=== PATIENT | female | born 1960 | race Caucasian/White ===

== ENCOUNTER 2025-06-05 18:35 | Inpatient (IN) | payer SELFPAY ==
--- NOTE | ~2025-06-05 | CT_ITS ---
CLINICAL HISTORY: diffuse abd pain, nausea - pt states she has an allergy to IV contrast. CT abdomen and pelvis without contrast Comparison: None provided Findings: LIMITED CHEST: See separate CT chest. LIVER: No focal liver lesion. BILIARY: Cholecystectomy. PANCREAS: No mass or ductal dilatation. SPLEEN: No splenomegaly. KIDNEYS: No hydronephrosis or radiopaque stone. ADRENALS: No nodule. VASCULAR: No aneurysm. RETROPERITONEUM: No lymphadenopathy or mass. BOWEL/MESENTERY: No evidence of obstruction. No free fluid or air. Colonic diverticulosis. There is long segment of colonic wall thickening and adjacent inflammatory stranding involving the transverse, descending, and sigmoid colon. ABDOMINAL WALL: No mass or significant abnormality. URINARY BLADDER: No focal wall thickening. PELVIC NODES: No pelvic lymphadenopathy. PELVIC ORGANS: Normal for age. BONES: No acute fracture. OTHER: Negative. IMPRESSION: Inflammatory stranding and wall thickening of the transverse, descending, and sigmoid colon suggesting infectious or inflammatory colitis. This document has been electronically signed by: Stephanie Lopez MD on 06/06/2025 00:59:15
--- NOTE | ~2025-06-05 | MR_ITS ---
CLINICAL HISTORY: encephalopathy rule out stroke MR of the brain without contrast Comparison: CT/SR - CT HEAD/BRAIN WO IV CON - 06/05/25 23:34 EST Findings: No acute infarction, hemorrhage, mass-effect or herniation. No hydrocephalus. Increased signal intensity is seen in the deep and periventricular white matter on the T2/FLAIR sequences, which most likely represents the sequela of mild chronic small vessel ischemic disease. No extra-axial fluid collection or mass. Unremarkable sella. Intact flow voids. Normal orbits. Large retention cyst/polyp in the left maxillary sinus. Fluid in the left sphenoid sinus, also present on prior study. Left taisha bullosa which also contains fluid, unchanged. Otherwise predominantly clear paranasal sinuses and mastoid air cells. Unremarkable osseous structures. Impression: No acute infarction or other findings to explain the patient's presentation. This document has been electronically signed by: Shayla Rojas MD on 06/06/2025 13:31:11
--- NOTE | ~2025-06-05 | CT_ITS ---
CLINICAL HISTORY: abd pain Exam: CT Abdomen and Pelvis With IV Contrast Comparison: None. Findings: The liver is enlarged. The gallbladder is surgically absent. The spleen is normal in size No pancreatic ductal dilatation No hydronephrosis. No urinary tract calculi or obstruction. Normal bowel caliber. There is diffuse thickening of midsigmoid colon wall where there are numerous diverticula. There is perisigmoid inflammatory fat stranding in the region of the sigmoid mesentery, example: Image 67/123, series 6. No secondary signs of acute appendicitis No free fluid/free air No vascular abnormalities. No adenopathy Bladder outline is smooth. Uterus is normal in size. No suspicious skeletal lesions. There is anterior and left abdominal wall superficial fascia edema consistent with cellulitis. Impression : 1. Anterior left abdominal wall superficial fascia cellulitis. 2. Diverticulitis versus colitis. The diagnosis of colitis is favor due to long segment involvement of both descending and sigmoid colon. No abscess. No perforation. This document has been electronically signed by: Henry Cochran MD on 06/09/2025 18:40:27
--- NOTE | ~2025-06-05 | CT_ITS ---
CLINICAL HISTORY: dizzy, fell hit the left posterior chest CT chest without contrast Comparison: None provided Findings: NECK BASE: Limited views of the neck are unremarkable. LUNGS/PLEURA: No focal consolidation. PULM VASCULAR: Poorly evaluated without IV contrast. MEDIASTINUM: No masses or lymphadenopathy. CARDIAC: No pericardial effusion. No cardiomegaly. Coronary artery calcifications. AORTA: No aneurysm. CHEST WALL: No masses or axillary lymphadenopathy. LIMITED ABDOMEN: See separate CT abdomen pelvis. BONES: No acute fracture. IMPRESSION: 1. No acute abnormality in the chest. This document has been electronically signed by: Stephanie Lopez MD on 06/06/2025 00:57:13
--- NOTE | ~2025-06-05 | CT_ITS ---
CLINICAL HISTORY: fall head injury vomiting CT head without contrast Comparison: None provided Findings: BRAIN: No acute infarct, hemorrhage, or mass effect. Scattered periventricular/deep white matter hypodensities, nonspecific, however may represent chronic microvascular ischemic disease. CSF SPACES: No hydrocephalus or effacement of basal cisterns. SKULL: No calvarial fracture. SINUSES: Left maxillary sinus retention cyst. ORBITS: Limited views are unremarkable. OTHER: Negative. IMPRESSION: 1. No acute intracranial findings. This document has been electronically signed by: Stephanie Lopez MD on 06/06/2025 00:36:49
--- NOTE | ~2025-06-05 | CT_ITS ---
CLINICAL HISTORY: fall neck pain CT cervical spine without contrast Comparison: None provided Findings: Straightening of the normal cervical lordosis. Multilevel degenerative endplate changes of the cervical spine. No high-grade spinal stenosis. No acute fractures or dislocations. No acute findings on limited view of the intracranial contents. Soft tissues of the neck are normal. Lung apices are clear. IMPRESSION: No acute findings. This document has been electronically signed by: Stephanie Lopez MD on 06/06/2025 00:37:02
[2025-06-05 18:43] VITALS: BP 160/92; PULSE 95; O2SAT 98
[2025-06-05 18:44] VITALS: BP 203/83; PULSE 79; RESP 18; TEMP 36.3; O2SAT 95; BMI 42.7
--- NOTE | 2025-06-05 19:23 | PC.NURSE ---
Pt a&ox4, no signs of distress. Pt reports hx of DM, POC is 372. Pts family at bedside Plan of care ongoing.
[2025-06-05 19:26] LABS: Glucose, Whole Blood 372 mg/dL (60-115)
--- NOTE | 2025-06-05 19:51 | ECG_ITS ---
Test Reason : DIZZINESS Blood Pressure : */* mmHG Vent. Rate : 85 BPM Atrial Rate : 85 BPM P-R Int : 174 ms QRS Dur : 88 ms QT Int : 392 ms P-R-T Axes : 33 59 114 degrees QTcB Int : 466 ms Normal sinus rhythm Septal infarct , age undetermined Abnormal ECG No previous ECGs available Referred By: Helena Sanchez Electronically Signed By: Joo Parker
--- NOTE | 2025-06-05 19:55 | ED.GENADULT ---
HPI - General Adult General Chief complaint: Fall Stated complaint: Fall yesterday, flank pain Time Seen by Provider: 06/05/25 19:09 History of Present Illness HPI narrative: Patient is a 64-year-old female history of diabetes. Patient felt dizzy fell yesterday hit her head. There was nausea. Now has abdominal pain. Has back pain. Has flank pain. Not on blood thinners except for aspirin. No fever no chill No focal weakness. Pain to the left posterior inferior rib area. Worse with deep breath. Worse with movement. Positive diffuse abdominal pain. Associated with nausea vomiting. Vomiting mostly consistent with bile. positive diarrhea brown. Not on any recent antibiotics. Did travel from [place]. There is no coughing or congestion or upper respiratory symptoms. There is no diaphoresis. Patient is from home. Related Data Previous Rx's ?Medication ?Instructions ?Recorded ondansetron 4 mg disintegrating 4 mg PO TID PRN nausea and 06/06/25 tablet vomiting 5 days #10 tabs Allergies Allergy/AdvReac Type Severity Reaction Status Date / Time No Known Allergies (No Known Allergy Verified 06/05/25 18:50 Allergies*) Review of Systems Review of Systems: Positive dizziness positive fall positive head injury positive chest pain positive abdominal pain Yes all other systems are reviewed and are negative [facility] Past Medical History Attestation statement: The following information was validated with the patient. Social History Social History Smoked in Last 30 Days: No Advance Directives: No Advance Directives Information Provided: No Physical Exam ED Exam Exam: Appearance: Alert. Oriented X3. No acute distress. Eyes: Pupils equal, round and reactive to light. ENT: Pharynx normal. Neck: Normal inspection. Neck supple. No lymph nodes noted. No crepitus CVS: Normal heart rate and rhythm. Pulses normal. Normal S1 and S2 Respiratory: No respiratory distress. Breath sounds normal. No Wheezing. No rales Abdomen: Soft and nontender. No rigidity. No distention. good BS x4 Skin: Skin warm and dry. Normal skin color. Normal skin turgor. Extremities: No lower extremity edema. Neurovascular intact to all extremities. No Lacerations. No Rash Neuro: Oriented X 3. No motor deficit. No sensory deficit. Moving all extermities. No slurred speech Vital Signs: Vital Signs - 24 hr 12/20/25 18:44 06/05/25 20:00 06/05/25 21:25 Temperature 97.4 F Pulse Rate 79 82 Respiratory Rate 18 16 18 Blood Pressure 203/83 H 109/90 H Pulse Oximetry 95 98 Oxygen Delivery Method Room Air Room Air 06/05/25 23:12 06/06/25 01:16 Temperature 98.0 F Pulse Rate 82 85 Respiratory Rate 16 14 Blood Pressure 154/60 H Pulse Oximetry 94 Oxygen Delivery Method Room Air BMI result Body Mass Index 42.7 Medications Administered Discontinued Medications Generic Name Dose Route Start Last Admin Trade Name Freq PRN Reason Stop Dose Admin Hydromorphone HCl 0.5 mg 06/05/25 21:18 06/05/25 21:25 Hydromorphone Hcl 0.5 Mg/0.5 Ml Syringe IVPUSH 06/05/25 21:19 0.5 mg ONCE ONE Administration Protocol Sodium Chloride 1,000 mls @ 999 mls/hr 06/05/25 20:00 06/05/25 20:13 Ns IV 06/05/25 21:00 999 mls/hr .Q1H1M SEVEN Administration Sodium Chloride 500 mls @ 999 mls/hr 06/05/25 20:00 06/05/25 20:18 Ns IV 06/05/25 20:30 999 mls/hr .Q31M SEVEN Administration Sodium Chloride 1,000 mls @ 999 mls/hr 06/05/25 22:00 06/05/25 23:00 Ns IV 06/05/25 23:00 999 mls/hr .Q1H1M SEVEN Administration Insulin Human Regular 5 unit 06/05/25 20:42 06/05/25 21:27 Insulin Regular, Human 100 Unit/Ml 10 Ml Vial IVPUSH 06/05/25 20:43 5 unit ONCE ONE Administration Ondansetron HCl 4 mg 06/05/25 21:18 06/05/25 21:23 Ondansetron Hcl 4 Mg/2 Ml Vial IVPUSH 06/05/25 21:19 4 mg ONCE ONE Administration Medical Decision Making Medical Decision Making MDM Narrative: Positive nausea vomiting diarrhea. Diarrhea was brown in color. [place] dizzy and fell hit her head. CT scan of the head was grossly negative for bleed. CT scan of the abdomen pelvis positive for colitis. No obstruction no abscess no perforation. CT C-spine showed no acute fracture no malalignment. Patient well-appearing given 2 L of IV fluids tolerated p.o. some Toradol for pain. Patient's BUN and creatinine consistent with dehydration. 2 L of fluid was given. She wants to go home. A stiff script for Zofran was given. patient's sugar is still 460 will give additional insulin. There is no evidence for DKA will wait for the fluids to go in and reassess. Case signed out at 2am Differential Diagnosis Differential Diagnoses: The differential diagnosis associated with the presentation includes Lab Data MDM Lab Attestation statement: I reviewed the patient's lab results. 06/05/25 20:12 06/05/25 20:12 Labs: Lab Results 06/05/25 06/05/25 Range/Units 19:19 20:12 WBC 15.7 H (4.8-10.8) X10*3/uL RBC 4.79 (4.20-5.50) X10*6/uL Hgb 14.1 (12.0-16.0) g/dl Hct 41.7 (37.0-47.0) % MCV 87.1 (80.0-98.0) fL MCH 29.4 (27.0-33.0) pg MCHC 33.8 (31.0-35.0) g/dl RDW 11.9 (11.0-16.0) % Plt Count 345 (160-400) X10*3/uL MPV 10.3 (9.4-12.3) fL Immature Gran % (Auto) 0.7 H (0.0-0.4) % Neut % (Auto) 86.7 H (45-73) % Lymph % (Auto) 8.0 L (20-40) % [place] % (Auto) 3.7 (2-11) % Eos % (Auto) 0.6 (0-4) % Baso % (Auto) 0.3 (0-2) % Lymph # (Auto) 1.3 (1.2-4.9) X10*3/uL [place] # (Auto) 0.6 (0.1-1.2) X10*3/uL Eos # (Auto) 0.1 (0.0-0.4) X10*3/uL Baso # (Auto) 0.1 (0.0-0.2) X10*3/uL Abs Immat Gran (auto) 0.11 H (0.00-0.03) X10*3/uL Absolute Neuts (auto) 13.6 H (2.0-8.3) x10*3/uL Absolute Nucleated RBC 0.000 (0.0-0.012) X10*3/uL Nucleated RBC % (auto) 0.0 (0.0-0.2) /100WBC Sodium 133 L (135-145) mmol/L Potassium 4.9 (3.3-5.1) mmol/L Chloride 98 (96-108) mmol/L Carbon Dioxide 22 (22-29) mmol/L Anion Gap 18 (12-20) BUN 33 H (9-16) mg/dL Creatinine 0.88 (0.5-1.4) mg/dL Estim Creat Clear Calc 83.4 Estimated GFR > 60 POC Glucose 372 H* (60-115) mg/dL Random Glucose 423 H* (60-115) mg/dL Calcium 10.4 H (8.4-10.2) mg/dL Total Bilirubin 0.4 (0.0-1.0) mg/dL Direct Bilirubin 0.1 (0.0-0.5) mg/dL AST 23 (5-31) U/L ALT 14 (0-31) U/L Alkaline Phosphatase 115 (39-117) U/L Total Creatine Kinase 71 (26-140) U/L Troponin I High Sens 4.2 (<3.5-17.0) ng/L Total Protein 8.2 H (6.5-8.0) g/dL Albumin 4.5 (3.5-5.0) g/dL Lipase 35 (8-78) U/L Influenza Type A (PCR) NEGATIVE (Negative) Influenza Type B (PCR) NEGATIVE (Negative) RSV RNA Qual (PCR) NEGATIVE (Negative) SARS-CoV-2 RNA (RT-PCR) NEGATIVE (Negative) Independent Interpretation I performed an independent interpretation of an: CT Scan ( CT head negative for bleed) Radiology Impression Discussion of test interpretation with radiology: I have reviewed the radiologist's reading. Discharge Plan Discharge Clinical Impression: Head injury, Dehydration, Diarrhea Patient Disposition: Still a Patient Instructions: Dehydration (DC), Head Injury (DC), Acute Nausea and Vomiting (ED), Acute Diarrhea (ED), Diabetic Hyperglycemia (ED) Prescriptions: New ondansetron 4 mg tablet,disintegrating 4 mg PO TID PRN (Reason: nausea and vomiting) 5 Days Qty: 10 0RF Referrals: [facility] [Physician, Medical] - 06/08/25 Print Language: Faroese
[2025-06-05 20:00] VITALS: BP 109/90; PULSE 82; RESP 16; O2SAT 98
[2025-06-05 20:17] LABS: MANUAL DIFF FLAG NO
[2025-06-05 20:25] LABS: Hematocrit 41.7 % (37.0-47.0); Hemoglobin 14.1 g/dl (12.0-16.0); Imm Gran Abs Auto 0.11 X10*3/uL (0.00-0.03); Imm Gran Pct Auto 0.7 % (0.0-0.4); Lymphocytes Absolute Auto 1.3 X10*3/uL (1.2-4.9); Mean Corpuscular HGB Conc 33.8 g/dl (31.0-35.0); Mean Corpuscular Hemoglobin 29.4 pg (27.0-33.0); Mean Corpuscular Volume 87.1 fL (80.0-98.0); NRBC Abs Auto 0.000 X10*3/uL (0.0-0.012); NRBC Pct Auto 0.0 /100WBC (0.0-0.2); Platelet Count 345 X10*3/uL (160-400); Red Blood Count 4.79 X10*6/uL (4.20-5.50); White Blood Count 15.7 X10*3/uL (4.8-10.8)
[2025-06-05 20:41] LABS: Alanine Aminotransferase 14 U/L (0-31); Albumin Level 4.5 g/dL (3.5-5.0); Alkaline Phosphatase 115 U/L (39-117); Anion Gap 18 (12-20); Aspartate Amino Transferase 23 U/L (5-31); Blood Urea Nitrogen 33 mg/dL (9-16); Calcium 10.4 mg/dL (8.4-10.2); Carbon Dioxide 22 mmol/L (22-29); Chloride 98 mmol/L (96-108); Creatinine Clr Calc Pharmacy 83.4; Estimated Glomerular Filt Rate > 60; Lipase 35 U/L (8-78); Potassium 4.9 mmol/L (3.3-5.1); Sodium 133 mmol/L (135-145); Total Protein 8.2 g/dL (6.5-8.0)
[2025-06-05 20:44] LABS: Troponin-I High Sensitivity 4.2 ng/L (<3.5-17.0)
[2025-06-05 21:03] LABS: Resp Syncy Virus RNA Qual PCR NEGATIVE (Negative); SARS COV2 PCR INHOUSE NEGATIVE (Negative)
[2025-06-05 21:25] VITALS: RESP 18
--- NOTE | 2025-06-05 21:32 | PC.NURSE ---
Pt medicated per [facility] Plan of care ongoing.
--- NOTE | 2025-06-05 21:39 | PC.NURSE ---
Pt requested and assisted to bedside commode Plan of care ongoing.
--- OUTSIDE RECORDS SUMMARY | 2025-06-05 22:10 | XMS_ITS | Clinical Summary ---
Author Organization [facility] Address [address] [place] [address] Phone Care Team Providers Care Product Delivery Specialist Name Role Phone Tad Roberts MD Primary Care Provider [phone] Kiana Lobato MD, Vijay Flores Unavailable [phone] Allergies Active Allergy Reactions Criticality Noted Date Comments [place] Rash Low 03/29/2017 Medications aspirin 81 MG chewable tablet Chew then swallow 81 mg daily. Active insulin NPH-insulin regular (NOVOLIN) 100 unit/mL (70-30) injection Inject under the skin 2 (two) times a day. Active losartan (COZAAR) 100 MG tablet Take 100 mg by mouth daily. Active ezetimibe-simva statin (VYTORIN) 10-20 mg per tablet Take 1 tablet by mouth nightly. Active albuterol (PROVENTIL HFA;VENTOLIN HFA) 90 mcg/actuation inhaler Inhale 2 puffs every 6 (six) hours as needed for wheezing. Active simvastatin (ZOCOR) 20 MG tablet No sig as of abstraction date. 4 Active cyclobenzaprine (FLEXERIL) 10 MG tablet Take by mouth. 5 Active traMADol (ULTRAM) 50 mg tablet 0 5 Active UNIFINE PENTIPS 31 gauge x 10/30 Ndle 11 5 Active oxyCODONE-aceta minophen (PERCOCET) 5-325 mg per tablet 0 5 Active nystatin (MYCOSTATIN) ointment 5 5 Active VICTOZA 2-[place] 0.6 mg/0.1 mL (18 mg/3 mL) PnIj 5 5 Active lidocaine (XYLOCAINE) 5 % ointment 5 5 Active ibuprofen (ADVIL,MOTRIN) 600 MG tablet 2 5 Active gabapentin (NEURONTIN) 300 MG capsule 9 5 Active amLODIPine (NORVASC) 5 mg tablet 6 5 Active omeprazole 20 mg TbECIndications :Diarrheal stools Take 20 mg by mouth daily. 30 each 3 5 Active atorvastatin (LIPITOR) 40 MG tablet 11 5 Active clarithromycin (BIAXIN) 500 MG tablet 0 5 Active metroNIDAZOLE (FLAGYL) 500 MG tablet 0 5 Active omeprazole (PRILOSEC) 20 MG capsule 3 5 Active simvastatin (ZOCOR) 40 MG tablet 5 5 Active zolpidem (AMBIEN) 5 MG tablet Take 1 tablet (5 mg total) by mouth nightly as needed for sleep. 15 tablet 0 6 Active ALPRAZolam (XANAX) 0.5 MG tabletIndicatio ns:Adjustment reaction with anxiety Please take 1/2 tablet (0.25mg) in the morning and 1 tablet (0.5mg) in the evening 45 tablet 0 6 Active mirtazapine (REMERON) 7.5 MG tabletIndicatio ns:Insomnia due to mental disorder Take 1 tablet (7.5 mg total) by mouth nightly. 30 tablet 0 6 Active acetaminophen 325 mg cap Take by mouth. 7 Active miscellaneous medical supply Misc large size, gradient IV 6 Active hydroCHLOROthia zide (HYDRODIURIL) 25 MG tablet Take by mouth. 7 Active ipratropium (ATROVENT) 0.03 % nasal spray into each nostril. 7 Active Active Problems Problem Noted Date Diagnosed Date Diarrhea 04/14/2018 Overview (04/14/2018): Added automatically from request for surgery [id number] Depressive disorder 12/27/2015 Overview (04/29/2018): 55 y/o [place] speaking female, unspecified depressive disorder (no previous suicide attempts, adjustment d/o with anxiety and insomnia presents for initial intake with this provider. Previously on Alprazolam and benzos overall for years, she is finding it difficult to think about weaning off. it can effect memory and cognition. Previously on Fluoxetine for depression and Mirtazapine for help with insomnia, likely due to a combination of depression and chronic pain. Assessment & Plan (01/24/2016 2:46 PM EDT): Pt reports symptom improvement with Fluoxetine. She says it has given her more energy and she feels her mood is improving. Still has some anxiety/panic symptoms related to her upcoming endoscopy. Will continue to uptitrate Fluoxetine. No appreciable side effects - inc Fluoxetine to 40mg daily Assessment & Plan (12/27/2015 3:16 PM EDT): Patient reports depressed mood, poor sleep, low energy, change in appetite in the setting of recent loss of her mother and oldest son in the last 6 months. - start Fluoxetine 20mg--patient reports forgetting her medication frequently so this is preferred due to longer half life - alprazolam 0.5mg BID prn. Patient used to take this medication with previous provider and found it helpful. Denies current substance abuse. Does not appear that patient has a history of abusing this medication. Informed of side effects. Diarrheal stools 03/23/2015 Overview (03/23/2015): 54 yr old [place] speaking F with h/o DMII and s/p cholecystectomy referred by PCP for chronic diarrhea. Assessment & Plan (03/23/2015 2:19 PM EDT): 54 yr old [place] speaking F with h/o DMII and s/p cholecystectomy referred by PCP for chronic diarrhea.The patient was seen in [facility] about one year ago on 04/12/14 for diarrhea and abdominal pain. The patient's main complaint today is epigastric pain and nausea. She had presented to [facility] in Jan 2015 and per the pt an abd/pelvic CT showed 3 stomach masses. It was recommended that the pt have an EGD for further evaluation. We will request copy of outside CT results for our review. The patient continues to have 1-2 loose BMs per day, which is most likely r/t functional bowel disorder such as IBS or may be related to s/p cholecystectomy. Recent stool studies at PCPs office were negative. Abd[place] [facility] [place] showed diffuse colonic diverticula w/o evidence of acute diverticulitis. Colonoscopy on 04/05/14 showed perianal erythematous rash found on perianal exam, two adenomatous polyps in the cecum and descending colon, and diverticulosis with no e/o microscopic colitis or diverticulitis. Recommend repeat surveillance screening colonoscopy in 5 yrs for adenomas. It is unclear what the stomach masses shown on recent outside abd/pelvic CT represent, but pt's symptoms seem most c/w GERD or gastritis. We recommend an EGD for further evaluation. Start taking once daily PPI. We discussed GERD lifestyle modifications, including avoiding NSAIDs (pt has been taking Motrin for epigastric pain which may be worsening her sx), alcohol, caffeine, mints, soda, spicy foods, and chocolate. Recommended that she eat small frequent meals instead of three large meals per day. Avoid eating at least two hours before bedtime. Elevate the head of the bed by about 6-12 inches. Maintain ideal body weight. Patient understands risks, benefits and alternatives and agrees to proceed with the following plan: Plan - take omeprazole 20mg every day, taken on an empty stomach 30 min before a meal - GERD lifestyle modifications (gave pt written handout in [place]) - schedule EGD - RTC in 3 months for follow up or sooner prn Adjustment reaction with anxiety 01/26/2015 Assessment & Plan (01/24/2016 2:44 PM EDT): Continues to have some anxiety related to an upcoming endoscopy. She says that she has been having a lot of pain in her abdominal area and the endoscopy will determine whether or not surgery is necessary--she mentions something about her colon and says that she may need a temporary colostomy bag. She seems nervous about the endoscopy but does not feel overly concerned about the surgery, but relieved if it will make her feel better. Continues to also have a lot of frustration with her chronic pain and LE edema. 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 Discussed her current medication regimen. We talked about increasing her Prozac, and continuing to uptitrate it to a therapeutic dose for depression/anxiety. She feels this medication has been helpful so far, and is amenable to the increase. Also talked about Alprazolam and our plan to slowly wean off it. She seemed very hesitant, as this has been the only medication which she perceives has worked for her in the past. Provided some psychoeducation. - reduced Alprazolam to 0.25mg qam and 0.5mg qpm - plan to continue to slowly titrate down, will proposed eliminating morning dose at next visit - patient advised extreme caution against mixing benzos with opioids. If she is to receive opioid pain medication due to any upcoming procedure, she was made aware of the risks of combining these two medications. Assessment & Plan (12/27/2015 3:17 PM EDT): Anxiety/panic worsening after of her son 3 months ago - renewed previous prescription for Alprazolam 0.5mg BID prn - patient will return in 1 month, patient will be monitored through [facility] Assessment & Plan (01/26/2015 12:29 PM EDT): Start Xanax 0.5mg BID prn for anxiety RTC in 2 months Insomnia due to mental condition 01/26/2015 Overview (03/18/2018): ICD10 Fall 2017 Code Replacement Assessment & Plan (01/24/2016 2:45 PM EDT): Persistent insomina due to ongoing depressive symptoms, and overall stress related to chronic pain and upcoming procedure. - given Mirtazapine 7.5mg at bedtime prn for sleep Assessment & Plan (12/27/2015 3:18 PM EDT): Insomnia related to depression and increased stress over recent events. Will give pt limited (15 pills) supply of Ambien this month. Informed patient that this is not a detention medication and not to use in for more than a week consecutively. Pt expressed understanding - Ambien 5mg at bedtime prn, 15 pills Assessment & Plan (01/26/2015 12:29 PM EDT): Start Trazodone 50-100mg qhs RTC in 2 months Pain of knee and lower leg 12/08/2013 Diverticulitis of colon 12/04/2013 Hyperlipidemia 12/04/2013 Hypertension 12/04/2013 Hypothyroidism 12/04/2013 Methicillin resistant Staphylococcus aureus infe ction 12/04/2013 Obesity 12/04/2013 History of renal calculi 12/04/2013 Type II diabetes mellitus, uncontrolled 12/05/19 14 Abdominal pain 12/04/2013 Resolved Problems Problem Noted Date Diagnosed Date Resolved Date Mood disorder 01/26/2015 12/27/2015 Insomnia 01/26/2015 01/26/2015 MDD (major depressive disord er), recurrent episode, moderate 01/25/2015 01/26/2015 Assessment & Plan (01/25/2015 4:54 PM EDT): inidividual therapy and medication management. Family History Medical History Relation Name Comments Diabetes Mellitus Father 88 Hypertension Father 88 Bipolar disorder Mother Diabetes Mellitus Mother Depression Sister 3 [place] Relation Name Status Comments Brother 1 Brother 2 48 Alive Child 1 14 boy Alive Child 2 30 girl Alive Father 88 Alive Mother Sister 1 Sister 2 [place] Alive Sister 3 [place] Alive Social History Tobacco Use Types Packs/Day Years Used Date Smoking Tobacco: Never Alcohol Use Standard Drinks/Week Comments Not Asked 0 (1 standard drink = 0.6 oz pur e alcohol) Comments Unknown Sex and Gender Information Value Date Recorded Sex Assigned at Not on file Legal Sex Female 10:32 PM EDT Gender Identity Not on file Sexual Orientation Not on file Last Filed Vital Signs Vital Sign Reading Time Taken Comments Blood Pressure 173/87 08/08/2017 11:41 AM EST Pulse 77 08/08/2017 11:41 AM EST Temperature 36.7 C (98 F) 03/23/2015 1:00 PM EDT Respiratory Rate 18 12/05/2013 6:12 PM EDT Oxygen Saturation 98% 08/08/2017 11: 41 AM EST Inhaled Oxygen Concentration - - Weight 112.3 kg (247 lb 9.6 oz) 018 11:41 AM EST Height 164.2 cm (5' 4.65 ) 03/23/2015 1:00 PM ED T Body Mass Index 41.66 03/23/2015 1:00 PM EDT Plan of Treatment Health Maintenance Due Date Last Done Comments HEMOGLOBIN A1C 1960 HIV Lifetime Screening 1960 Hepatitis B Lifetime Screening 1960 Hepatitis C Antibody Lifetime Screening 1961 LIPID PANEL 1961 THRIVE SCREENING 1961 Oral Health Screen 02/04/1962 HEIP Disability Screen 1966 FOOT EXAM (MONOFILAMENT) 09/05/1971 OPHTHALMOLOGY EXAM 09/05/1971 URINE MICROALBUMIN 09/05/1971 BEHAVIORAL HEALTH SCREEN 1973 Psych Substance Use Screen 1973 DTAP/TDAP VACCINE (1 - Tdap) 1980 Pneumonia Vaccine 50+ (1 of 2 - PCV) 1980 Cervical Cancer Screening 1982 Colposcopy 1982 LEEP 1982 PAP SMEAR 1982 Pap + HPV 1982 MAMMOGRAM 2001 FOBT 2006 Sigmoidoscopy 2006 Zoster Vaccine (1 of 2) 09/05/2011 Colonoscopy FOBT- Positive 04/06/2014 04/05/2014 CREATININE LEVEL 12/05/2014 12/05/2013, 12/05/2013 RSV Immunization 60 Years and Older OR (1 - Risk 60-74 years 1-dose series) 2021 Colonoscopy 04/05/2024 04/05/2014 Colorectal Cancer Screening 04/05/2024 COVID-19 Vaccine ( season) 2025 INFLUENZA VACCINE (#1) 2025 6, 03/01/2015, 02/24/2014, Additional history exists HEPATITIS B VACCINES Aged Out No long er eligible based on patient's age to complete this topic HPV VACCINES Aged Out No longer eligi ble based on patient's age to complete this topic IPV VACCINES Aged Out No longer eligi ble based on patient's age to complete this topic MENINGOCOCCAL B Aged Out No longer el igible based on patient's age to complete this topic ROTAVIRUS VACCINES Aged Out No longer eligible based on patient's age to complete this topic Procedures Procedure Name Priority Date/Time Associated Diagnosis Comments COLONOSCOPY Routine 04/05/2014 1:59 PM EDT COMPREHENSIVE METABOLIC PANEL STAT 12/05/2013 2:41 PM EDT from Last 3 Months or Most Recently Relevant to Health Maintenance Results * Colonoscopy (04/05/2014 1:59 PM EDT) Colonoscopy Patient Name: Angela Ward Procedure Date: 04/05/2014 1:59 PM SSN: [id number] Date of : 1960 Admit Type: Outpatient Age: 53 Room: H - Room 4 Procedure: Colonoscopy Indications: Abdominal pain in the right lower quadrant, Chronic diarrhea Providers: Norris Carlson MD, Yu Sage MD (Fellow) Referring MD: Kristi Alvarez (Referring MD) Medicines: Monitored Anesthesia Care Complications: No immediate complications. Procedure: After obtaining informed consent, the colonoscope was passed under direct vision. Throughout the procedure, the patient's blood pressure, pulse, and oxygen saturations were monitored continuously. The Colonoscope was introduced through the anus and advanced to the ileum. The colonoscopy was performed without difficulty. The patient tolerated the procedure well. The quality of the bowel preparation was evaluated using the BBPS ([place] Bowel Preparation Scale) with scores of: Right Colon = 3 (entire mucosa seen well with no residual staining, small fragments of stool or opaque liquid), Transverse Colon = 3 (entire mucosa seen well with no residual staining, small fragments of stool or opaque liquid) and Left Colon = 3 (entire mucosa seen well with no residual staining, small fragments of stool or opaque liquid). The total BBPS score equals 9. Findings: The perianal exam was abnormal. Findings include a perianal rash. A sessile polyp was found in the cecum. The polyp was 6 mm in size. The polyp was removed with a cold snare. Resection and retrieval were complete. A sessile polyp was found in the descending colon. The polyp was 7 mm in size. The polyp was removed with a hot snare. Resection and retrieval were complete. Many small and large-mouthed diverticula were found in the sigmoid colon, in the descending colon and in the transverse colon. Random biopsies were taken throughout the colon. The terminal ileum appeared normal. Impression: - Perianal erythematous rash found on perianal exam. - One 6 mm polyp in the cecum. Resected and retrieved. - One 7 mm polyp in the descending colon. Resected and retrieved. - Diverticulosis in the sigmoid colon, in the descending colon and in the transverse colon. - Random biopsies taken throughout the colon to evaluate for microscopic colitis. - The examined portion of the ileum was normal. Recommendation: - Await pathology results. - If the pathology report reveals adenomatous tissue, then the colonoscopy will be repeated for surveillance in five years. - If the pathology report reveals no adenomatous tissue, then the colonoscopy will be repeated for screening purposes in 10 years. - Follow up in GI clinic for further evaluation of chronic diarrhea and abdominal pain. Attending Participation: I was present and participated during the entire procedure, including non-chandler portions. Norris Carlson MD 04/05/2014 2:50 PM This report has been signed electronically.<Ph ysician Name, Title> __ Yu Sage MD 04/05/2014 2:27 PM Number of Addenda: 0 Note Initiated On: 04/05/2014 1:59 PM [facility] 04/05/2014 1:59 PM EDT Kristi Alvarez MD GI AMBULATORY PROCEDURE Fi nal Result [facility] * (ABNORMAL) Comprehensive Metabolic Panel (12/05/2013 2:41 PM EDT) Albumin 4.0 3.5 - 5.0 G/DL 12/05/2013 4:03 PM EDT [facility] Bilirubin, Total 0.2(L) 0.3 - 1.2 MG/DL 12/05/2013 4:03 PM EDT [facility] Calcium 9.5 8 - 10.5 MG/DL 12/05/2013 4:03 PM EDT [facility] CO2 24.0 19 - 28 MMOL/L 12/05/2013 4:03 PM EDT [facility] Chloride 102 98 - 110 MMOL/L 12/05/2013 4:03 PM EDT [facility] Glucose 213(H) 70 - 100 MG/DL 12/05/2013 4:03 PM EDT [facility] Alkaline Phosphatase, Total 70 25 - 100 U/L 12/05/2013 4:03 PM EDT [facility] Potassium 4.2 3.1 - 5.3 MMOL/L 12/05/2013 4:03 PM EDT [facility] Comment:For serum, the lower end of the reference range may be higher by 0.2 to 0.4 mmol/L. Protein, Total 7.8 6.8 - 8.6 G/DL 12/05/2013 4:03 PM EDT [facility] Sodium 137 135 - 145 MMOL/L 12/05/2013 4:03 PM EDT [facility] ALT(SGPT) 28 9.0 - 67.0 U/L 12/05/2013 4:03 PM EDT [facility] AST(SGOT) 20 13 - 39 U/L 12/05/2013 4:03 PM EDT [facility] Urea Nitrogen (BUN) 26(H) 7 - 25 MG/DL 12/05/2013 4:03 PM EDT [facility] Creatinine 0.79 0.5 - 1.1 MG/DL 12/05/2013 4:03 PM EDT [facility] Gfr (Non ) >60 >60 mL/min/1.7 3 m2 12/05/2013 4:03 PM EDT [facility] Comment: The estimation of GFR assumes stable renal function. It is not an accurate measure of GFR in acute renal failure. The MDRD eGFR equations used for these calculations may be less accurate in certain populations, such as women, and those with unusually high or low muscle mass. The MDRD eGFR is not to be interpreted for drug dosing purposes. Gfr () >60 >60 mL/min/1.7 3 m2 12/05/2013 4:03 PM EDT [facility] Comment: The estimation of GFR assumes stable renal function. It is not an accurate measure of GFR in acute renal failure. The MDRD eGFR equations used for these calculations may be less accurate in certain populations, such as women, and those with unusually high or low muscle mass. The MDRD eGFR is not to be interpreted for drug dosing purposes. Anion Gap Without Potassium 11 7 - 16 12/05/2013 4:03 PM EDT [facility] Blood 12/05/2013 2:41 PM EDT 12/05/2013 3:26 PM EDT us Fidelia Little MD LAB BLOOD ORDERABLES Final Result [facility] CLIA [id number] [address] [facility] [address] from Last 3 Months or Most Recently Relevant to Health Maintenance Care Teams Product Delivery Specialist Relationship Specialty Start Date End Date Tad Roberts MD [address] [place] [id number] PCP - General Family Medicine 04/07/18 Vijay Bruno Jr., MD [address] [place] [id number] Gastroenterology 04/14/18
--- OUTSIDE RECORDS SUMMARY | 2025-06-05 22:10 | XMS_ITS | Clinical Summary ---
Author Organization [facility] Address [address] [place], [place] Phone Care Team Providers Care Wireworker Supervisor Name Role Phone Genesis Almendarez MD Unavailable [phone] Celso Jane Unavailable Unavailable Genesis Almendarez MD Primary Care Provider [phone] Allergies Active Allergy Reactions Criticality Noted Date Comments Iodinated Contrast Media Rash Medium 09/03/2022 Iodine Rash Low 10/09/2023 [place] Rash Low 07/24/2022 Medications cetirizine (ZyrTEC) 10 mg tablet Take 10 mg by mouth 1 (one) time each day. 3 Active glipiZIDE (GLUCOTROL) 10 mg tablet Take 10 mg by mouth every 12 (twelve) hours. 2 Active levothyroxine (SYNTHROID) 200 mcg tablet 1 (one) time each day at the same time. Active sertraline (ZOLOFT) 50 mg tablet 1 (one) time each day at the same time. Active ALPRAZolam (XANAX) 0.5 mg tablet Take 2 mg by mouth 3 (three) times a day if needed for anxiety. Active hydroCHLOROthiaz amira (HYDRODIURIL) 25 mg tablet Take 1 tablet (25 mg total) by mouth 1 (one) time each day. 30 tablet 2 3 Active isosorbide mononitrate (IMDUR) 30 mg 24 hr tablet Take 1 tablet (30 mg total) by mouth 1 (one) time each day. Do not crush or chew. 30 tablet 2 3 Active aspirin 81 mg EC/DR tabletIndication s:Atherosclerosi s of [place] coronary artery of [place] heart, unspecified whether angina present Take 1 tablet (81 mg total) by mouth 1 (one) time each day. 30 tablet 2 3 Active atorvastatin (LIPITOR) 80 mg tabletIndication s:Atherosclerosi s of [place] coronary artery of [place] heart, unspecified whether angina present Take 1 tablet (80 mg total) by mouth every night at bedtime. 30 tablet 2 3 Active carvedilol (COREG) 12.5 mg tabletIndication s:Atherosclerosi s of [place] coronary artery of [place] heart, unspecified whether angina present,Heart failure with reduced ejection fraction (CMS/Commercial- HCC) Take 1 tablet (12.5 mg total) by mouth in the morning and 1 tablet (12.5 mg total) in the evening. Take with meals. 60 tablet 2 3 Active loratadine (CLARITIN) 10 mg tablet TOME TITO BOBBY ZARATE LOS D FOR 90 DAYS *NOT COVERED* 3 Active traZODone (DESYREL) 50 mg tablet TAKE ONE TABLET BY MOUTH EVERY DAY AT BEDTIME NEEDED FOR SLEEP 3 Active spironolactone (ALDACTONE) 25 mg tablet Take 0.5 tablets (12.5 mg total) by mouth 1 (one) time each day. 15 tablet 3 Active furosemide (Lasix) 20 mg tablet Take 1 tablet (20 mg total) by mouth 1 (one) time each day for 5 days. 5 tablet 4 Active clopidogrel (PLAVIX) 75 mg tablet Take 75 mg by mouth 1 (one) time each day. 4 Active lisinopril (ZESTRIL) 20 mg tablet Take 20 mg by mouth 1 (one) time each day. 4 Active Levemir U-100 Insulin 100 unit/mL vial Inject 30 Units under the skin in the morning and 30 Units before bedtime. 10 mL 5 Active methocarbamol (ROBAXIN) 500 mg tablet Take 1 tablet (500 mg total) by mouth 2 (two) times a day if needed for muscle spasms for up to 10 days. 20 tablet 5 Active amLODIPine (NORVASC) 5 mg tablet Take 5 mg by mouth 1 (one) time each day. 4 12/22/19 Discontinu ed(Stop Taking at Discharge) Active Problems Problem Noted Date Diagnosed Date Pyelonephritis 06/29/2024 Left renal mass 06/29/2024 Subacute cough 12/22/2023 Acute chest pain 10/09/2023 Overview (10/09/2023): troponin hs<4x1 ECG- NSR, nonspecific T wave abnormality Community acquired pneumonia 10/09/2023 HTN (hypertension) 10/09/2023 HLD (hyperlipidemia) 10/09/2023 Hypothyroidism (acquired) 10/09/2023 Type 2 diabetes mellitus 10/09/2023 Obesity 10/09/2023 CARLSON (nonalcoholic steatohepatitis) 02/02/2023 Diverticulitis 02/01/2023 Abnormal EKG 11/23/2022 Diabetes mellitus without complication 3 Angina pectoris, unspecified 10/30/2022 Hypertensive heart disease with HF (heart failur e) 10/30/2022 Status post left heart catheterization 3 Overview (10/26/2022): 10/25/2022 Severe 80% stenosis in the proximal LAD. Patent stent in mid LAD. Mild 30% stenosis in the mid LCX. Patent stent in OM2. RCA is a small caliber vessel with a 90% stenosis in the proximal to mid segment. Mildly reduced LVEF of 45-50%. Moderately elevated LVEDP of 26 mmHg. Clinical correlation is recommended. S/P PTCA (percutaneous transluminal coronary ang ioplasty) 10/26/2022 Overview (10/26/2022): 10/25/2022 Multivessel CAD: proximal LAD 80% pre instent restenosis, patent stent in OM2, proximal RCA small caliber 80-90% diffuse known from before. Left to right collaterals noted to rpl and rPDA * s/p PCI with ARCELIA x 1 to proximal LAD with IVUS optimization and post dilatation to 3.0 mm Unstable angina 10/22/2022 Non compliance w medication regimen 10/22/2022 Overview (10/22/2022): Poor Compliance with DM management Abnormal stress test 10/20/2022 Overview (10/22/2022): Added automatically from request for surgery [id number] CAD (coronary artery disease) 10/18/2022 Coronary atherosclerosis of [place] coronary kei ry 09/20/2022 Constipation 09/11/2022 Chest pain 09/03/2022 Chest pain, unspecified type 09/03/2022 Heart failure with reduced ejection fraction Overview (10/18/2022): HFmrEF-TTE 45 to 49% Abdominal pain, acute 09/03/2022 Normocytic anemia 09/03/2022 Precordial pain 08/23/2022 Dysuria 08/23/2022 MARIO (acute kidney injury) 08/23/2022 History of right and left heart catheterization 07/30/2022 Overview (07/30/2022): 07/25/2022 Severe 70% mid LAD stenosis. Severe 80% stenosis of OM2. Diffuse proximal to mid RCA 80-90% stenosis. Mildly reduced LV systolic function with LVEF of 40% with mild global hypokinesis. Right heart cardiac catheterization demonstrated grossly normal right and left heart filling pressures in the setting of a normal CO/CI as measured by the Franci method. There is no pulmonary artery hypertension appreciated. Clinical correlation is recommended. History of coronary artery stent placement 07/30 Overview (07/30/2022): 07/25/2022 Coronary artery disease with 80% OM2 stenosis, 70% mid LAD stenosis and diffuse proximal to mid RCA 80-90% stenosis. * Successful percutaneous coronary intervention of OM2 stenosis with Synergy 2.75 x 20 mm ARCELIA with 0% residual stenosis and IFRAH 3 flow. * Successful percutaneous coronary intervention of mid LAD stenosis with Synergy 2.75 x 32 mm ARCELIA with 0% residual stenosis and IFRAH 3 flow. * Balloon angioplasty of proximal to mid RCA stenosis. Type 2 diabetes mellitus with hyperglycemia 06/2022 Acute cystitis with hematuria 07/18/2022 Non-STEMI (non-ST elevated myocardial infarction ) 07/18/2022 COVID-19 07/18/2022 Asymptomatic hypertensive urgency 07/18/2022 Obesity 07/18/2022 Acute systolic heart failure 07/18/2022 Overview (07/30/2022): HFmrEF; EF 45-49% Hypertension Hyperlipidemia Resolved Problems Problem Noted Date Diagnosed Date Resolved Date Acute right flank pain 06/29/202407/01 Acute cough 12/21/2023 12/22/2023 Social History Tobacco Use Types Packs/Day Years Used Date Smoking Tobacco: Never Smokeless Tobacco: Never Alcohol Use Standard Drinks/Week Comments Not Currently 0 (1 standard drink = 0.6 oz pur e alcohol) Caregiver Education and Work Answer Kaveh e Recorded Opt Out of Tobacco Outreach No 06/2022 Opt Out of Tobacco Outreach No 06/2022 Safety and Environment Answer Date Zane rded Opt Out of Tobacco Outreach No 06/2022 Opt Out of Tobacco Outreach No 06/2022 Opt Out of Tobacco Outreach No 06/2022 Opt Out of Tobacco Outreach No 06/2022 Caregiver Health Answer Date Recorded Opt Out of Tobacco Outreach No 06/2022 Opt Out of Tobacco Outreach No 06/2022 Opt Out of Tobacco Outreach No 06/2022 Child Education Answer Date Recorded Opt Out of Tobacco Outreach No 06/2022 Opt Out of Tobacco Outreach No 06/2022 Opt Out of Tobacco Outreach No 06/2022 Adolescent Substance Use Answer Date Re corded Opt Out of Tobacco Outreach No 06/2022 Opt Out of Tobacco Outreach No 06/2022 Opt Out of Tobacco Outreach No 06/2022 [place] Short Social Needs Screen ing - Utilities Answer Date Recorded Would you like help with any of the following needs? (Select ALL that apply) I don't want help with any of these 06/30/2024 [place] ED Domestic Violence Answer Date Rec orded Do you feel threatened or afraid of others close to you? No 01/09/2025 [place] IP Psychosocial Abuse Answer Date Re corded Is there any current sexual, emotional, verbal, or physical abuse? No 06/29/2024 [place] IP Abuse Screen Peds 18 Years or Older Answer Date Recorded Is there any current sexual, emotional, verbal, or physical abuse? No 06/29/2024 [place] Short Social Needs Screen ing - Social Connection Answer Date Recorded Would you like help with any of the following needs? (Select ALL that apply) I don't want help with any of these 06/30/2024 [place] IP CAGE Alcohol Use Answer Date Zane rded CAGE Screening: Is the patie nt able to participate in an alcohol misuse screening? Not on file 06/29/2024 CAGE Questionnaire Score 0 025 [place] Short Social Needs Screen ing - Medical Financial Resource Strain Answer Date Recorded Would you like help with any of the following needs? (Select ALL that apply) I don't want help with any of these 06/30/2024 [place] Short Social Needs Screen ing - Food Insecurity Answer Date Recorded Would you like help with any of the following needs? (Select ALL that apply) I don't want help with any of these 06/30/2024 [place] Short Social Needs Screen ing - Transportation Answer Date Recorded Would you like help with any of the following needs? (Select ALL that apply) I don't want help with any of these 06/30/2024 [place] Short Social Needs Screen ing - Housing Answer Date Recorded Would you like help with any of the following needs? (Select ALL that apply) I don't want help with any of these 06/30/2024 Comments No Sex and Gender Information Value Date Recorded Sex Assigned at Not on file Legal Sex Female 5:07 AM EDT Gender Identity Not on file Sexual Orientation Not on file Last Filed Vital Signs Vital Sign Reading Time Taken Comments Blood Pressure 135/66 01/09/2025 5:05 PM EDT Pulse 85 01/09/2025 5:05 PM EDT Temperature 36.6 C (97.9 F) 01/09/2025 3:01 PM EDT Respiratory Rate 18 01/09/2025 5:05 PM EDT Oxygen Saturation 96% 01/09/2025 5:05 PM EDT Inhaled Oxygen Concentration - - Weight 109 kg (240 lb) 01/09/2025 3:11 PM EDT Height 160 cm (5' 3 ) 01/09/2025 3:11 PM EDT Body Mass Index 42.51 01/09/2025 3:11 PM EDT Plan of Treatment Health Maintenance Due Date Last Done Comments CT Colonography 1961 FIT-DNA 1961 FIT 1961 FOBT 1961 HIV Screening 1961 Hepatitis C Screening 1961 Sigmoidoscopy 1961 Urine Microalbumin Ratio 1961 MMR Vaccines (1 of 1 - Standard series) 1962 COVID-19 Vaccine (#1) 1966 Obesity Intervention 09/05/1967 Diabetic Foot Exam 09/05/1971 Depression Screening 1973 Zoster Vaccines (1 of 2) 1980 [place] Cervical Cancer Screening 1982 Pap Smear Every 1 year 1982 Pap Smear Every 3 years 1982 Pap Smear every 5 years 1982 Colonoscopy 2006 [place] Colorectal Cancer Screening 2006 Pneumococcal Vaccine: 50+ Years (2 of 2 - PCV) 10/07/2011 10/06/2010 Mammogram 07/16/2017 07/16/2015 DTaP,Tdap,and Td Vaccines (2 - Td or Tdap) 10/06/2020 10/06/2010 RSV women or 60 years and older (1 - Risk 60-74 years 1-dose series) 2021 Hemoglobin A1C 12/27/2024 06/29/2024, 09/16, 02/02/2023, Additional history exists Influenza Vaccine (#1) 2025 9, 05/17/2016, 03/01/2015, Additional history exists Lipid Panel 06/30/2025 06/30/2024, 09/16, 10/21/2022, Additional history exists Hypertension Annual Potassium 01/09/2026 01/09/2025, 09/05/2024, 07/12/2024, Additional history exists Pneumococcal Vaccine: Pediatrics (0 to 5 Years) and At-Risk Patients (6 to 49 Years) Aged Out 10/06/2010 No longer eligible based on patient's age to complete this topic Hepatitis B Vaccines Completed 11/30/2015, 01/17/2015, 02/24/2014 Diabetes Screening Discontinued 01/09/2025, 0 01/09/2025, 01/09/2025, Additional history exists HIB Vaccines Aged Out No longer eligi ble based on patient's age to complete this topic HPV Vaccines Aged Out No longer eligi ble based on patient's age to complete this topic Hepatitis A Vaccines Aged Out No long er eligible based on patient's age to complete this topic IPV Vaccines Aged Out No longer eligi ble based on patient's age to complete this topic Meningococcal ACWY Aged Out No longer eligible based on patient's age to complete this topic RSV patients under 20 months Aged Out No longer eligible based on patient's age to complete this topic Medical Devices Implanted Type Area Nuclear Medical Technologist Device Identifier Shelf Expiration Date Model / Serial / Lot Stent Coronary Synergy Xd Monorail 2.85d03xl Everolimus Eluting [place] [employer] - [id number] - [id number] Implanted:Qty: 1 on 07/25/2022 by Mino Damon MD at [facility] Drug Eluting Coronary Stent [employer] 08/18/2023 [id number] / [id number] / [id number] Description:1ST om Stent Coronary Synergy Xd Monorail 2.50j64xx Everolimus Eluting [place] [employer] - [id number] - [id number] Implanted:Qty: 1 on 07/25/2022 by Mino Damon MD at [facility] Drug Eluting Coronary Stent [employer] 12/21/2022 [id number] / [id number] / [id number] Description:Mid LAD Stent Coronary Resolute Juan 3x12mm Rapid Exchange - [id number] - [id number] Implanted:Qty: 1 on 10/25/2022 by Marah Hannah MD at [facility] Drug Eluting Coronary Stent [employer] 10/22/2024 [id number] / [id number] / [id number] [id number] Procedures Procedure Name Priority Date/Time Associated Diagnosis Comments POCT CHEM 8 PROFILE UNSOLICITED RESULTS Routine 01/09/2025 3:18 PM EDT COMPREHENSIVE METABOLIC PANEL STAT 01/09/2025 3:13 PM EDT LIPID PANEL STAT 06/30/2024 3:00 AM EST HEMOGLOBIN A1C Add-On 06/29/2024 5:39 AM EST from Last 3 Months or Most Recently Relevant to Health Maintenance Results * (ABNORMAL) POCT Chem 8 Profile Unsolicited Results (01/09/2025 3:18 PM EDT) Sodium - POC 137(L) 138 - 146 mmol/L 01/09/2025 3:19 PM EDT [facility] Potassium - POC 4.4 3.5 - 4.9 mmol/L 01/09/2025 3:19 PM EDT [facility] Chloride - POC 104 98 - 109 mmol/L 01/09/2025 3:19 PM EDT [facility] Ionized Calcium - POC 1.20 1.12 - 1.32 mmol/L 01/09/2025 3:19 PM EDT [facility] Hematocrit - POC 39.0 34.0 - 44.0 % 01/09/2025 3:19 PM EDT [facility] Glucose - POC 276(H) 65 - 100 mg/dL 01/09/2025 3:19 PM EDT [facility] Creatinine POC 1.20 0.60 - 1.30 mg/dL 01/09/2025 3:19 PM EDT [facility] eGFR POC 51 mL/min/1.7 3m2 01/09/2025 3:19 PM EDT [facility] Comment: Calculation based on the Chronic Kidney Disease Epidemiology Collaboration (CKD- EPI) equation refit without adjustment for race. GFR ranges: A GFR of 60 higher is in the normal range. A GFR below 60 may mean kidney disease. A GFR of 15 or lower may mean kidney failure. Below shows the 5 stages of CKD with ICD-10 code and GFR for each stage: N18.1 Stage 1: With normal or high GFR (GFR > 90 mL/min) N18.2 Stage 2: Mild CKD (GFR = 60-89 mL/min) N18.3 Stage 3A: Moderate CKD (GFR = 45-59 mL/min) N18.3 Stage 3B: Moderate CKD (GFR = 30-44 mL/min) N18.4 Stage 4: Severe CKD (GFR = 15-29 mL/min) N18.5 Stage 5: End Stage CKD (GFR < 15 mL/min) TCO2, POC 23.0 23.0 - 27.0 mmol/L 01/09/2025 3:19 PM EDT [facility] BUN POC 30 mg/dL 01/09/2025 3:19 PM EDT [facility] Anion Gap - POC 15 10 - 20 mmol/L 01/09/2025 3:19 PM EDT [facility] Hemoglobin - POC 13.3 11.4 - 14.7 g/dL 01/09/2025 3:19 PM EDT [facility] Blood 01/09/2025 3:18 PM EDT 01/09/2025 3:19 PM EDT Leana Boston MD LAB POINT OF CARE TEST DOCKED DEVICE UNSOLICITED RESULTS Final Result [facility] [address] [place] [address], * (ABNORMAL) Comprehensive metabolic panel (01/09/2025 3:13 PM EDT) Sodium 135(L) 136 - 145 mmol/L LAB CHEMISTRY METHOD 01/09/2025 3:47 PM EDT [facility] Potassium 4.4 3.5 - 5.1 mmol/L LAB CHEMISTRY METHOD 01/09/2025 3:47 PM EDT [facility] Chloride 103 98 - 107 mmol/L LAB CHEMISTRY METHOD 01/09/2025 3:47 PM EDT [facility] CO2 22 22 - 31 mmol/L LAB CHEMISTRY METHOD 01/09/2025 3:47 PM EDT [facility] Glucose 267(H) 80 - 115 mg/dL LAB CHEMISTRY METHOD 01/09/2025 3:47 PM EDT [facility] BUN 29(H) 7 - 20 mg/dL LAB CHEMISTRY METHOD 01/09/2025 3:47 PM EDT [facility] Creatinine 1.05 0.60 - 1.10 mg/dL LAB CHEMISTRY METHOD 01/09/2025 3:47 PM EDT [facility] BUN/Creatinine Ratio 27.6(H) 7.3 - 21.7 LAB CHEMISTRY METHOD 01/09/2025 3:47 PM EDT [facility] Calcium 9.4 8.4 - 10.2 mg/dL LAB CHEMISTRY METHOD 01/09/2025 3:47 PM EDT [facility] Total Protein 8.1 6.4 - 8.3 g/dL LAB CHEMISTRY METHOD 01/09/2025 3:47 PM EDT [facility] Albumin Level 3.5 3.5 - 5.0 g/dL LAB CHEMISTRY METHOD 01/09/2025 3:47 PM EDT [facility] Bilirubin Total 0.2 0.2 - 1.2 mg/dL LAB CHEMISTRY METHOD 01/09/2025 3:47 PM EDT [facility] ALT 15 6 - 55 U/L LAB CHEMISTRY METHOD 01/09/2025 3:47 PM EDT [facility] AST 16 5 - 34 U/L LAB CHEMISTRY METHOD 01/09/2025 3:47 PM EDT [facility] ALP 93 40 - 150 U/L LAB CHEMISTRY METHOD 01/09/2025 3:47 PM EDT [facility] Osmolality Calc 295 280 - 300 mOs/kg LAB CHEMISTRY METHOD 01/09/2025 3:47 PM EDT [facility] Anion Gap 10 2 - 12 mmol/L LAB CHEMISTRY METHOD 01/09/2025 3:47 PM EDT [facility] Corrected Calcium 9.8 mg/dL 025 3:47 PM EDT [facility] eGFR 60 mL/min LAB CHEMISTRY METHOD 01/09/2025 3:47 PM EDT [facility] Comment: Calculation based on the Chronic Kidney Disease Epidemiology Collaboration (CKD- EPI) equation refit without adjustment for race. GFR ranges: A GFR of 60 higher is in the normal range. A GFR below 60 may mean kidney disease. A GFR of 15 or lower may mean kidney failure. Below shows the 5 stages of CKD with ICD-10 code and GFR for each stage: N18.1 Stage 1: With normal or high GFR (GFR > 90 mL/min) N18.2 Stage 2: Mild CKD (GFR = 60-89 mL/min) N18.3 Stage 3A: Moderate CKD (GFR = 45-59 mL/min) N18.3 Stage 3B: Moderate CKD (GFR = 30-44 mL/min) N18.4 Stage 4: Severe CKD (GFR = 15-29 mL/min) N18.5 Stage 5: End Stage CKD (GFR < 15 mL/min) Blood Venous blood specimen / Unknown Venipuncture / Unknown 01/09/2025 3:13 PM EDT 01/09/2025 3:17 PM EDT Betzaida BARCENAS LAB BLOOD ORDERABLES Final Result [facility] [address] [place] [address], * (ABNORMAL) Lipid panel (06/30/2024 3:00 AM EST) Triglycerides 211(H) 7 - 149 mg/dL LAB CHEMISTRY METHOD 06/30/2024 3:35 AM EST [facility] Comment: Fasting Triglycerides: Normal - Less than 150 mg/dl Borderline High - 150 to 199 mg/dl High - 200 to 499 mg/dl Very High - 500 mg/dl or greater Cholesterol, Total 207(H) 118 - 199 mg/dL LAB CHEMISTRY METHOD 06/30/2024 3:35 AM EST [facility] Comment: Fasting Cholesterol: Desirable- Less than 200 mg/dl Borderline high- 200 to 239 mg/dl High- 240 mg/dl or greater HDL Cholesterol 30(L) 40 - 60 mg/dL LAB CHEMISTRY METHOD 06/30/2024 3:35 AM EST [facility] Comment: Fasting HDL Cholesterol: High (Desirable) - Greater than 60 mg/dl Acceptable - 40 to 60 mg/dl Low - Less than 40 mg/dl Chol/HDL Ratio 6.9(H) 3.9 - 5.7 LAB CHEMISTRY METHOD 06/30/2024 3:35 AM EST [facility] LDL Calculated 135(H) <=130 mg/dL LAB CHEMISTRY METHOD 06/30/2024 3:35 AM EST [facility] Comment: LDL Cholesterol: Below 70 mg/dL - Best for people who have coronary artery disease - including a history of heart attacks, angina, stents, or coronary bypass. Below 100 mg/dL - Optimal for people at risk of coronary artery disease or who have diabetes. Near optimal for people with uncomplicated coronary artery disease. 100-129 mg/dL - Near optimal if there is no coronary artery disease. High if there is coronary artery disease. 130-159 mg/dL - Borderline high if there is no coronary artery disease. High if there is coronary artery disease. 160-189 mg/dL - High if there is no coronary artery disease. Very high if there is coronary artery disease. 190 mg/dL and above - Very high, likely representing a genetic condition. Blood Venous blood specimen / Unknown Venipuncture / Unknown 06/30/2024 3:00 AM EST 06/30/2024 3:15 AM EST Kevin Dixon MD LAB BLOOD ORDERABLES Fi nal Result Performing Organization Address [facility]/ZIP Co de Phone Number [facility] [address] [place] [id number], * (ABNORMAL) Hemoglobin A1c (06/29/2024 5:39 AM EST) Hemoglobin A1c 9.2(H) 4.0 - 6.0 % LAB CHEMISTRY METHOD 06/29/2024 8:16 AM EST [facility] Blood Venous blood specimen / Unknown Venipuncture / Unknown 06/29/2024 5:39 AM EST 06/29/2024 5:40 AM EST Megan Méndez APRN LAB BLOOD ORDERABLES Final Result Performing Organization Address [facility] de Phone Number [facility] [address] [place] [address], from Last 3 Months or Most Recently Relevant to Health Maintenance Insurance [facility] MEDICAID - CMS AND SMI [place] [facility] - [facility] AND [facility] Advance Directives For more information, please contact: [phone] * Full Code (Latest Code Status on File) Date Activated Date Inactivated Comments 06/29/2024 7:43 AM 07/01/2024 10:17 PM * Full Code Date Activated Date Inactivated Comments 12/21/2023 8:01 PM 12/22/2023 9:28 PM * Full Code Date Activated Date Inactivated Comments 10/09/2023 7:58 AM 10/10/2023 1:47 PM * Full Code Date Activated Date Inactivated Comments 02/02/2023 1:29 AM 02/05/2023 5:27 PM * Full Code Date Activated Date Inactivated Comments 10/20/2022 9:35 AM 10/26/2022 5:13 PM Care Teams Wireworker Supervisor Relationship Specialty Start Date End Date Genesis Almendarez MD [address] [place] [phone] PCP - General Internal Medicine 04/10/24 Genesis Almendarez MD [address] [place] [phone] Internal Medicine 10/09/23 Celso Jane Order Make Up ClerkPoultry Farmer Meat 07/23/22
--- OUTSIDE RECORDS SUMMARY | 2025-06-05 22:10 | XMS_ITS | Clinical Summary ---
Author Organization [facility] Address [address] [address] Phone Care Team Providers Care Internal Affairs Investigator Name Role Phone Jose Klein MD Primary Care Provider + Allergies No known active allergies Medications diazepam (VALIUM) 5 MG tablet Take 1 tablet by mouth 2 (two) times a day. ANALIA [id number] 5 Active metFORMIN (GLUCOPHAGE) 500 MG tablet Dose: Not available; Form: Not available; Route: PO; Frequency: BID; Directions: Not available; Details: Dispense: Tablet(s); Date: 08/14/2013 4 Active sertraline (ZOLOFT) 100 MG tablet Take 1 tablet by mouth daily. 5 Active levothyroxine (SYNTHROID, LEVOTHROID) 300 MCG tablet Dose: Not available; Form: Take 1 TABLET; Route: PO; Frequency: Not available; Directions: Not available; Details: Dispense: Tablet(s); Date: 08/14/2013 4 Active diclofenac sodium (VOLTAREN) 1 % Gel Apply 2 g topically 4 (four) times a day. Dosing cards supplied in the drug product carton. 4 Active ibuprofen (ADVIL,MOTRIN) 600 MG tablet Take 1 tablet (600 mg total) by mouth 2 (two) times a day as needed. 60 tablet 0 6 Active Active Problems Problem Noted Date Diagnosed Date Primary osteoarthritis involving multiple joints 09/13/2015 Fibromyalgia 09/13/2015 Sprain of rotator cuff capsule 09/13/2015 Diabetes mellitus 08/14/2013 Overview (09/13/2015): Diabetes mellitus Hypothyroidism 08/14/2013 Overview (09/13/2015): Hypothyroidism Obesity 07/21/2013 Overview (09/13/2015): Obesity Depressive disorder 07/21/2013 Overview (09/13/2015): Depressive disorder Family History Medical History Relation Comments Type 1 Diabetes Father Diabetes Mellitu s Type 1 Type 1 Diabetes Mother Diabetes Mellitu s Type 1 Relation Status Comments Father Mother Social History Tobacco Use Types Packs/Day Years Used Date Smoking Tobacco: Never Education Answer Date Recorded Are you interested in more education? Not on rigoberto e 10/21/2022 Are you concerned about learning? Not on file 10/21/2022 No 10/21/2022 No 10/21/2022 Digital Access Answer Date Recorded No 11/11/2022 No 11/11/2022 No 11/11/2022 Reliable internet access at home? Not on file 11/11/2022 Device with a working camera? Not on file Comments Unknown Sex and Gender Information Value Date Recorded Sex Assigned at Not on file Legal Sex Female 6:24 PM EST Gender Identity Not on file Sexual Orientation Not on file Last Filed Vital Signs Vital Sign Reading Time Taken Comments Blood Pressure 169/99 04/10/2016 3:14 PM EDT Pulse 84 04/10/2016 3:14 PM EDT Temperature 36.7 C (98.1 F) 04/10/2016 3:14 PM EDT Respiratory Rate 16 09/13/2015 2:56 PM EDT Oxygen Saturation 96% 09/13/2015 2:56 PM EDT Inhaled Oxygen Concentration - - Weight 118.4 kg (261 lb) 04/10/2016 3:14 PM EDT Height 165.1 cm (5' 5 ) 04/10/2016 3:14 PM EDT Body Mass Index 43.43 04/10/2016 3:14 PM EDT Plan of Treatment Health Maintenance Due Date Last Done Comments Adult Td,Tdap Booster 1961 BLOOD PRESSURE 1961 HEMOGLOBIN A1C 1961 TSH LEVEL 1961 DEPRESSION SCREENING 1973 HEPATITIS C SCREENING 09/05/1979 HIV ONE-TIME SCREENING (18-6 5 YEARS) 09/05/1979 LIPID PANEL 09/05/1979 PNEUMOCOCCAL VACCINES (50+ years) (1 of 2 - PCV) 1980 PAP SMEAR 1982 MAMMOGRAM 2001 COLOGUARD 2006 COLONOSCOPY 2006 COLORECTAL CANCER SCREENING 2006 FIT TEST 2006 FOBT 2006 SIGMOIDOSCOPY 2006 VIRTUAL COLONOSCOPY 2006 ZOSTER VACCINES (1 of 2) 09/05/2011 CREATININE LEVEL 07/20/2014 07/20/2013, 11/08/2012, 10/18/2012 DIABETIC EYE EXAM 08/07/2014 URINE MICROALBUMIN/CREATININ E RATIO 08/07/2014 INFLUENZA VACCINE (#1) 2025 COVID-19 VACCINE ( - 2024-2 6 season) 2025 RSV VACCINE (1 - 1-dose 75+ series) 2036 SMOKING STATUS SCREENING (On ce After 26 Yrs) Completed 01/10/2016 HEPATITIS A VACCINES Aged Out No long er eligible based on patient's age to complete this topic HIB VACCINES Aged Out No longer eligi ble based on patient's age to complete this topic MENINGOCOCCAL VACCINES (ACWY) Aged Out No longer eligible based on patient's age to complete this topic MENINGOCOCCAL VACCINES (B) Aged Out N o longer eligible based on patient's age to complete this topic Medical Devices Not on file Procedures Procedure Name Priority Date/Time Associated Diagnosis Comments HISTORICAL LAB Routine 07/20/2013 7:45 PM EST from Last 3 Months or Most Recently Relevant to Health Maintenance Results * (ABNORMAL) Historical Lab (07/20/2013 7:45 PM EST) Plasma Sodium 135 135 - 145 mmol/L [facility] Plasma Potassium 3.7 3.4 - 4.8 mmol/L [facility] Plasma Chloride 95(Abnorm ally L) 100 - 108 mmol/L [facility] Plasma Carbon Dioxide 30.0 23.0 - 31.9 mmol/L [facility] Plasma Urea Nitrogen 14 8 - 25 mg/dl [facility] Plasma Creatinine 0.69 0.60 - 1.50 mg/dl [facility] Plasma Glucose 229(Abnor milton H) 70 - 110 mg/dl [facility] Calcium 10.1 8.5 - 10.5 mg/dl [facility] eGFR >60 mL/min/1. 73m2 [facility] Comment: Abnormal if <60 mL/min/1.73m2. If patient is -[place], multiply the result by 1.21. Plasma Anion GAP 10 3 - 15 mmol/L [facility] Magnesium 1.3(Abnor milton L) 1.4 - 2.0 meq/L [facility] Phosphorus 3.5 2.6 - 4.5 mg/dl [facility] 07/20/2013 7:45 PM EST 07/20/2013 7:53 PM EST Comment:BLOOD us Conversion Provider Not In Sys LAB BLOOD ORDERAB LES Final Result [address] [id number] from Last 3 Months or Most Recently Relevant to Health Maintenance Insurance [facility] [place] [id number] [facility] [place] [phone] Care Teams Internal Affairs Investigator Relationship Specialty Start Date End Date Jose Klein MD [address] [place] [phone] [email or web address] PCP - General Internal Medicine 09/15/14 Additional Source Comments The information contained in this document represents components of the legal health record. It is not the complete legal health record.[facility]
--- OUTSIDE RECORDS SUMMARY | 2025-06-05 22:10 | XMS_ITS | Encounter Summary ---
Author Organization [facility] Address [address] [place], [place] Phone Care Team Providers Care Bruise Trimmer Name Role Phone None, Pcp Primary Care Provider Unavailabl e Genesis Almendarez MD Unavailable [phone] Celso Jane Unavailable Unavailable Genesis Almendarez MD Primary Care Provider + [phone] Natasha Winn Unavailable Unavailable Encounter Details Date Type Department Care Team (Late st Contact Info) Description 02/05/2024 Scanned Outside Records [facility] Historical Encounter Provider, MD Romaine Social History Tobacco Use Types Packs/Day Years [...] Out of Tobacco Outreach No 06/2022 [place] ED Domestic Violence Answer Date Rec orded Do you feel threatened or afraid of others close to you? No 12/21/2023 [place] Psychosocial Abuse Answer Date Re corded Is there any current sexual, emotional, verbal, or physical abuse? No 12/21/2023 [place] Abuse Screen Peds 18 Years or Older Answer Date Recorded Is there any current sexual, emotional, verbal, or physical abuse? No 12/21/2023 [place] Short Social Needs Screening - Social Connect ion Answer Date Recorded Would you like help with any of the following needs: food, medicine/medical supplies, transportation, loneliness, housing or utilities? Not on file 10/22/2023 [place] CAGE Alcohol Use Answer Date Zane rded Is the patient able to parti cipate in an alcohol misuse screening? Yes 12/21/2023 CAGE Questionnaire Score 0 024 Comments No Sex and Gender Information Value Date Recorded Sex Assigned at Not on file Legal Sex Female 5:07 AM EDT Gender Identity Not on file Sexual Orientation Not on file documented as of this encounter Functional Status * Are you deaf or do you have serious difficulty hearing? Answer Date of Assessment Author No 10/26/2022 12:44 PM EDT Latosha Orellana RN * Are you blind or do you have serious difficulty seeing, even when wearing glasses? Answer Date of Assessment Author No 10/26/2022 12:44 PM EDT Latosha Orellana RN * Do you have serious difficulty walking or climbing stairs? Answer Date of Assessment Author No 10/26/2022 12:44 PM EDT Latosha Orellana RN * Do you have serious difficulty dressing or bathing? Answer Date of Assessment Author No 10/26/2022 12:44 PM EDT Latosha Orellana RN * Because of a physical, mental, or emotional condition, do you have serious difficulty doing errandsalone such as visiting the doctor? Answer Date of Assessment Author No 10/26/2022 12:44 PM EDT Latosha Orellana RN documented as of this encounter Mental Status * Because of a physical, mental, or emotional condition, do you have serious difficulty concentrating, remembering, or making decisions? (5 years old or older) Answer Entry Date Author No 10/26/2022 12:44 PM EDT Latosha Orellana RN documented in this encounter Plan of Treatment Not on file documented as of this encounter Visit Diagnoses Not on filedocumented in this encounter Additional Health Concerns Infection Onset Date Last Indicated Resolved Time COVID-19 (Rule Out) 01/09/2025 01/09/2025 01/10/20 4:45 PM EDT documented as of this encounter Care Teams Bruise Trimmer Relationship Specialty Start Date End Date None, Pcp PCP - General 10/09/23 04/09/24 Genesis Almendarez MD [address] [place] [phone] PCP - General Internal Medicine 04/10/24 Genesis Almendarez MD [address] [place] [phone] Internal Medicine 10/09/23 Celso Jane Photoengraving SupervisorTire Man 07/23/22 Natasha Winn [employer]eng[employer] Super[employer] Man 07/02/24 08/07/24 documented as of this encounter
--- OUTSIDE RECORDS SUMMARY | 2025-06-05 22:10 | XMS_ITS | Encounter Summary ---
Author Organization [facility] r Address [address] [place] [address] Phone Care Team Providers Care Cold Storage Worker Name Role Phone Kristi Alvarez MD Primary Care Provider Lucina holleyilaKristi Dubon MD Unavailable Unavailab Darrell Osborne MD Unavailable Unavailable Tad Roberts MD Primary Care Provider [phone] Kiana Lobato MD, Vijay Flores Unavailable [phone] Reason for Visit * Reason Comments Other Encounter Details Date Type Department Care Team (Late st Contact Info) Description 09/01/2015 Refill Gastroenterology [address] [facility] [address] [place] [address] Delisa August, RESIDENTIAL DIRECTOR [address] [place] [address] Social History Tobacco Use Types Packs/Day Years [...] on file documented as of this encounter Plan of Treatment Not on file documented as of this encounter Visit Diagnoses Not on filedocumented in this encounter Care Teams Cold Storage Worker Relationship Specialty Start Date End Date Kristi Alvarez MD PCP - General 11/10/13 04/06/18 Kristi Alvarez MD PCP - Insurance 01/25/15 10/22/16 Darrell Xavier MD PCP - Insurance 10/23/16 04/06/18 Tad Roberts MD Counts include 234 beds at the [facility] [place] [address] PCP - General Family Medicine 04/07/18 Vijay Bruno Jr., MD [address] [place] [address], [address] [place] [phone] Gastroenterology 04/14/18 documented as of this encounter
[2025-06-05 23:12] VITALS: PULSE 82; RESP 16
[2025-06-06] VITALS (12 sets, daily range): BP systolic 103–154; BP diastolic 46–70; PULSE 85–100; RESP 12–21; TEMP 36.4–37.2; O2SAT 93–98; BMI 44.2
[2025-06-06 01:52] LABS: Glucose, Whole Blood 460 mg/dL (60-115)
[2025-06-06 02:57] LABS: Glucose, Whole Blood 450 mg/dL (60-115)
--- NOTE | 2025-06-06 03:14 | PC.NURSE ---
pt tolerating water well. c/o abd and back pain. MD aware. medicated per MAR for pain and high POC
[2025-06-06 03:51] LABS: Glucose, Whole Blood 439 mg/dL (60-115)
[2025-06-06] MEDS: Lactated Ringers 1,000 ML 999 ML IV (05:05)
[2025-06-06 05:13] LABS: Anion Gap 18 (12-20); Blood Urea Nitrogen 38 mg/dL (9-16); Calcium 9.5 mg/dL (8.4-10.2); Carbon Dioxide 19 mmol/L (22-29); Chloride 102 mmol/L (96-108); Creatinine Clr Calc Pharmacy 64.3; Estimated Glomerular Filt Rate 48; Potassium 4.8 mmol/L (3.3-5.1); Sodium 134 mmol/L (135-145)
--- NOTE | 2025-06-06 05:48 | PC.NURSE ---
assist to commode, pt urinated 350mls urine, then had lose watery stool into hat/commode. unable to send UA or GI/CDiff with this specimen.
[2025-06-06 06:16] LABS: Venous Blood Gas Refer to POC result
[2025-06-06 06:18] LABS: VBG HCO3 18 mmol/L (22-26); VBG O2 % Saturation 91.0 %
[2025-06-06 06:25] LABS: Appearance Urine Cloudy; Glucose Urine UA >=1000 mg/dL (Negative); PH 5.0 (5.0-9.0); Specific Gravity - Urine 1.020 (1.005-1.025); UMIC TRIGGER UACC YES
--- NOTE | 2025-06-06 06:25 | PC.NURSE ---
straight cath to obtain urine. pt tolerated well. 200mls output. UA sent
--- NOTE | 2025-06-06 06:26 | PC.NURSE ---
20g U/S guided IV L forearm, labs obtained
[2025-06-06 06:31] LABS: Glucose, Whole Blood 418 mg/dL (60-115)
[2025-06-06 06:55] LABS: Reflex Lactate? Lactic Acid Added
--- NOTE | 2025-06-06 07:50 | PC.NURSE ---
Assumed care of patent at 0700. IVF running. Patient placed on 2 liters NC d/t patient sleeping and dipping down to 87% on RA. Patient saturating well on 2L. Afebrile ad VSS. Patient aox4.
[2025-06-06 08:09] LABS: ~Lactic Acid-LAB USE ONLY 3.2 mmol/L (0.5-2.0)
[2025-06-06 08:13] LABS: Reflex Lactate? Lactic Acid Added
[2025-06-06 09:11] LABS: Glucose, Whole Blood 409 mg/dL (60-115)
[2025-06-06 09:34] LABS: Reflex Lactate? 2 Y
--- NOTE | 2025-06-06 09:46 | P.HPHOSP_ITS ---
History of Present Illness Date of Service: 06/06/25 Chief Complaint: Dizzy 64-year-old female with past medical history significant for T2 dm, who presented to the hospital after having vertigo and hitting her head. After fall, patient presented with left posterior inferior rib area, diffuse abdominal pain, emesis with bilious content. In the ED, labs with WBC 15.7, sodium 133, glucose 423, UA with glucosuria and trace ketones. head CT scattered periventricular deep white matter hypodensities, cervical spine with no acute findings, chest CT with no abnormalities, abdominal pelvic CT scan with inflammatory stranding and wall thickening of the transverse, descending and sigmoid colon suggestive of infectious or inflammatory colitis. Patient received multiple doses of IV insulin. Patient at this time somnolent, history was complimented through chart review, per nursing recently received IV pain medications. Review of Systems 2 Review of Systems: Yes Unobtainable due to mental status PMFSH Social History Smoked in Last 30 Days: No Advance Directives: No Advance Directives Information Provided: No Meds Allergies Allergy/AdvReac Type Severity Reaction Status Date / Time No Known Allergies (No Known Allergy Verified 06/05/25 18:50 Allergies*) Active Medications: Current Medications Acetaminophen (Acetaminophen 325 Mg Tablet) 650 mg PO Q6H PRN PRN Reason: Pain, Mild 1-3,fever,headache Calcium Carbonate (Calcium Carbonate 750 Mg Tab.Chew) 750 mg PO Q4H PRN PRN Reason: Heartburn Dextrose (Dextrose 50 % 25 Gm/50 Ml Syringe) 25 gm IVPUSH Q15M PRN; Protocol PRN Reason: per Hypoglycemia Standing Ord. Glucose (Glucose Gel 15 Gm Gel..Gram.) 15 gm PO Q15M PRN; Protocol PRN Reason: per Hypoglycemia Standing Ord. Heparin Sodium (Porcine) (Heparin Sodium,Porcine 5,000 Unit/Ml Vial) 5,000 unit SUBCUT Q12H SEVEN Lactated Ringer's (Lr) 1,000 mls @ 125 mls/hr IVCONT .Q8H SEVEN Insulin Glargine (Insulin Glargine,Hum.Rec.Anlog 100 Unit/Ml 10 Ml Vial) 25 unit SUBCUT BEDTIME SEVEN Insulin Human Lispro (Insulin Lispro 100 Unit/Ml 3 Ml Vial) [facility]; Protocol Magnesium Hydroxide (Milk Of Magnesia 30 Ml Oral.Susp) 30 ml PO DAILY PRN PRN Reason: Constipation Melatonin (Melatonin 3 Mg Tablet) 6 mg PO BEDTIME PRN PRN Reason: Insomnia Sodium Chloride (0.9 % Sodium Chloride Flush 3 Ml Syringe) [facility] Medications ?Medication ?Instructions ?Recorded ?Confirmed ?Last Taken ?Type amlodipine 5 mg tablet 5 mg PO DAILY 06/06/25 Unkn own History atorvastatin 20 mg tablet 20 mg PO Q OTHER DAY 5 Unknown History clotrimazole-betamethasone 1 1 appl topical BID Unknown History %-0.05 % topical cream gemfibrozil 600 mg tablet 600 mg PO Q48H 06/06/25 Unk nown History glipizide 10 mg tablet 10 mg PO BID 06/06/25 Unkno wn History hydrochlorothiazide 25 mg tablet 25 mg PO DAILY Unknown History insulin glargine 100 unit/mL 25 unit subcut DAILY 05/18 07/11 Unknown History subcutaneous solution (Lantus U-100 Insulin) insulin lispro 100 unit/mL 10 unit subcut TID 06/06/25 Unknown History subcutaneous solution (Humalog U-100 Insulin) insulin regular human 100 unit/mL 10 unit subcut 06/06 Unknown History injection solution (Novolin R Regular U-100 Insulin) isosorbide mononitrate 30 mg 30 mg PO DAILY 06/06/25 Unknown History tablet,extended release 24 hr levothyroxine 200 mcg tablet 200 mcg PO QAM 06/06/25 Unknown History lisinopril 20 mg tablet 20 mg PO DAILY 06/06/25 Unk nown History meclizine 25 mg tablet 25 mg PO Q12H PRN Dizziness 06/06/25 Unknown History montelukast 10 mg tablet 10 mg PO DAILY 06/06/25 Unk nown History sertraline 50 mg tablet 50 mg PO DAILY 06/06/25 Unk nown History Physical Exam 2 Vital Signs and Narrative: Vital Signs: Last Vital Signs Temp 97.8 F 06/06/25 07:43 Pulse 93 06/06/25 07:43 Resp 18 06/06/25 07:43 BP 139/57 L 06/06/25 08:23 Pulse Ox 93 12/21/25 07:43 O2 Del Method Room Air 06/06/25 07:43 BMI result Body Mass Index 42.7 General: Somnolent oriented x3, No acute distress Head: AT/NC ENT: Moist mucous membranes Neck: supple CVS; RRR, S1 S2 normal Lungs: Clear bilateral breath sounds, no wheezes or crackles Abd: Soft, tender to palpation Ext: No edema and no calf tenderness MSK: moving all 4 limbs Skin: No cyanosis or edema Psych: Cooperative with exam Results Labs 06/05/25 20:12 06/06/25 04:52 Labs: Laboratory Results - last 24 hr 06/05/25 06/05/25 06/06/25 19:19 20:12 01:47 MCV 87.1 MCH 29.4 MCHC 33.8 RDW 11.9 Plt Count 345 MPV 10.3 Immature Gran % (Auto) 0.7 H Neut % (Auto) 86.7 H Lymph % (Auto) 8.0 L [place] % (Auto) 3.7 Eos % (Auto) 0.6 Baso % (Auto) 0.3 Lymph # (Auto) 1.3 [place] # (Auto) 0.6 Eos # (Auto) 0.1 Baso # (Auto) 0.1 Abs Immat Gran (auto) 0.11 H Absolute Neuts (auto) 13.6 H Absolute Nucleated RBC 0.000 Nucleated RBC % (auto) 0.0 VBG pH VBG pCO2 VBG pO2 VBG HCO3 VBG O2 Saturation VBG Base Excess Anion Gap 18 Estim Creat Clear Calc 83.4 Estimated GFR > 60 POC Glucose 372 H* 460 H* Random Glucose 423 H* Lactic Acid Lactic Acid F/U @ 2Hr Calcium 10.4 H Total Bilirubin 0.4 Direct Bilirubin 0.1 AST 23 ALT 14 Alkaline Phosphatase 115 Total Creatine Kinase 71 Troponin I High Sens 4.2 Total Protein 8.2 H Albumin 4.5 Lipase 35 Beta-Hydroxybutyrate Urine Color Urine Appearance Urine pH Ur Specific [place] Urine Protein Urine Glucose (UA) Urine Ketones Urine Blood Urine Nitrite Ur Leukocyte Esterase Urine RBC Urine WBC Ur Squamous Epith Cells Urine Bacteria Hyaline Casts Influenza Type A (PCR) NEGATIVE Influenza Type B (PCR) NEGATIVE RSV RNA Qual (PCR) NEGATIVE SARS-CoV-2 RNA (RT-PCR) NEGATIVE 06/06/25 06/06/2506/06/25 02:52 03:46 04:40 MCV MCH MCHC RDW Plt Count MPV Immature Gran % (Auto) Neut % (Auto) Lymph % (Auto) [place] % (Auto) Eos % (Auto) Baso % (Auto) Lymph # (Auto) [place] # (Auto) Eos # (Auto) Baso # (Auto) Abs Immat Gran (auto) Absolute Neuts (auto) Absolute Nucleated RBC Nucleated RBC % (auto) VBG pH VBG pCO2 VBG pO2 VBG HCO3 VBG O2 Saturation VBG Base Excess Anion Gap Estim Creat Clear Calc Estimated GFR POC Glucose 450 H* 439 H* Random Glucose Lactic Acid 3.4 H* Lactic Acid F/U @ 2Hr Calcium Total Bilirubin Direct Bilirubin AST ALT Alkaline Phosphatase Total Creatine Kinase Troponin I High Sens Total Protein Albumin Lipase Beta-Hydroxybutyrate Urine Color Urine Appearance Urine pH Ur Specific [place] Urine Protein Urine Glucose (UA) Urine Ketones Urine Blood Urine Nitrite Ur Leukocyte Esterase Urine RBC Urine WBC Ur Squamous Epith Cells Urine Bacteria Hyaline Casts Influenza Type A (PCR) Influenza Type B (PCR) RSV RNA Qual (PCR) SARS-CoV-2 RNA (RT-PCR) 06/06/25 06/06/25 06/06/25 04:52 06:08 06:13 MCV MCH MCHC RDW Plt Count MPV Immature Gran % (Auto) Neut % (Auto) Lymph % (Auto) [place] % (Auto) Eos % (Auto) Baso % (Auto) Lymph # (Auto) [place] # (Auto) Eos # (Auto) Baso # (Auto) Abs Immat Gran (auto) Absolute Neuts (auto) Absolute Nucleated RBC Nucleated RBC % (auto) VBG pH 7.26 L VBG pCO2 39 VBG pO2 72 VBG HCO3 18 L VBG O2 Saturation 91.0 VBG Base Excess -8.4 Anion Gap 18 Estim Creat Clear Calc 64.3 Estimated GFR 48 POC Glucose Random Glucose 436 H* Lactic Acid 4.0 H* Lactic Acid F/U @ 2Hr Calcium 9.5 D Total Bilirubin Direct Bilirubin AST ALT Alkaline Phosphatase Total Creatine Kinase Troponin I High Sens Total Protein Albumin Lipase Beta-Hydroxybutyrate 0.33 H Urine Color Urine Appearance Urine pH Ur Specific [place] Urine Protein Urine Glucose (UA) Urine Ketones Urine Blood Urine Nitrite Ur Leukocyte Esterase Urine RBC Urine WBC Ur Squamous Epith Cells Urine Bacteria Hyaline Casts Influenza Type A (PCR) Influenza Type B (PCR) RSV RNA Qual (PCR) SARS-CoV-2 RNA (RT-PCR) 06/06/25 06/06/25 06/06/25 06:20 06:27 07:32 MCV MCH MCHC RDW Plt Count MPV Immature Gran % (Auto) Neut % (Auto) Lymph % (Auto) [place] % (Auto) Eos % (Auto) Baso % (Auto) Lymph # (Auto) [place] # (Auto) Eos # (Auto) Baso # (Auto) Abs Immat Gran (auto) Absolute Neuts (auto) Absolute Nucleated RBC Nucleated RBC % (auto) VBG pH VBG pCO2 VBG pO2 VBG HCO3 VBG O2 Saturation VBG Base Excess Anion Gap Estim Creat Clear Calc Estimated GFR POC Glucose 418 H* Random Glucose Lactic Acid Lactic Acid F/U @ 2Hr 3.2 H* Calcium Total Bilirubin Direct Bilirubin AST ALT Alkaline Phosphatase Total Creatine Kinase Troponin I High Sens Total Protein Albumin Lipase Beta-Hydroxybutyrate Urine Color Yellow Urine Appearance Cloudy Urine pH 5.0 Ur Specific [place] 1.020 Urine Protein 100 (2+) H Urine Glucose (UA) >=1000 H Urine Ketones Trace Urine Blood Negative Urine Nitrite Negative Ur Leukocyte Esterase Negative Urine RBC 0-2 Urine WBC 0-5 Ur Squamous Epith Cells 0-2 Urine Bacteria None Seen Hyaline Casts 3-5 Influenza Type A (PCR) Influenza Type B (PCR) RSV RNA Qual (PCR) SARS-CoV-2 RNA (RT-PCR) 06/06/25 09:06 MCV MCH MCHC RDW Plt Count MPV Immature Gran % (Auto) Neut % (Auto) Lymph % (Auto) [place] % (Auto) Eos % (Auto) Baso % (Auto) Lymph # (Auto) [place] # (Auto) Eos # (Auto) Baso # (Auto) Abs Immat Gran (auto) Absolute Neuts (auto) Absolute Nucleated RBC Nucleated RBC % (auto) VBG pH VBG pCO2 VBG pO2 VBG HCO3 VBG O2 Saturation VBG Base Excess Anion Gap Estim Creat Clear Calc Estimated GFR POC Glucose 409 H* Random Glucose Lactic Acid Lactic Acid F/U @ 2Hr Calcium Total Bilirubin Direct Bilirubin AST ALT Alkaline Phosphatase Total Creatine Kinase Troponin I High Sens Total Protein Albumin Lipase Beta-Hydroxybutyrate Urine Color Urine Appearance Urine pH Ur Specific [place] Urine Protein Urine Glucose (UA) Urine Ketones Urine Blood Urine Nitrite Ur Leukocyte Esterase Urine RBC Urine WBC Ur Squamous Epith Cells Urine Bacteria Hyaline Casts Influenza Type A (PCR) Influenza Type B (PCR) RSV RNA Qual (PCR) SARS-CoV-2 RNA (RT-PCR) Assessment and Plan (1) Sepsis: Status: Acute Plan Assessment: 64-year-old female who presented to the ED after vertigo with subsequent fall. Patient also complaining of emesis with vomiting. In the ED found to have lactic acidosis and leukocytosis, with CT scans showing colitis. Patient admitted for IV antibiotics. Toxic metabolic encephalopathy Sepsis, likely secondary to gastroenteritis Anion gap metabolic acidosis likely secondary to Lactic acidosis, multifactorial dehydration, sepsis and possible DKA/HHS Leukocytosis -labs and imaging reviewed -continue with IV fluids LR at 125 mL/hour -we will continue IV Zosyn for sepsis -blood cultures ordered and pending, with the UA with negative nitrites and leukocyte esterase -GI panel ordered -stat ABG, lactic acid, bmp, ammonia ordered T2 dm with lactic acidosis, positive beta hydroxybutyrate, no anion gap noted -we will increase basal insulin and give additional doses of insulin, pending labs to consider insulin drip. -A1c ordered Hyponatremia, ruled out, decreased in setting of elevated glucose corrected sodium 142 MARIO -creatinine increased from 0.8->1.1. per KDIGO guidelines -will initiate IV LR at 125ml/hr -Repeat labs Hypothyroidism, chronic -TSH ordered, will resume medications FEN: LR, replete as needed, NPO after more awake GI PPx: Protonix DVT PPx: SCDs/heparin Code Status: Full Code Disposition: Patient requires admission to the hospital for least 2 days in the setting of sepsis, lactic acidosis and gastroenteritis. Total time managing care of this patient today: 75 minutes. Quality Stroke Does the patient have a stroke diagnosis?: No VTE Prior VTE?: No VTE Risk Level:: Medical - moderate - high VTE Device Contraindication: N/A - Device Ordered VTE Drug Contraindication: N/A - Med Ordered
[2025-06-06 09:57] LABS: ABG HCO3 20 mmol/L (22-26); ABG O2 % Saturation 99.0 %
[2025-06-06] MEDS: Lactated Ringers 1,000 ML 125 ML IVCONT (10:23)
--- NOTE | 2025-06-06 10:32 | PC.NURSE ---
Patient up to commode to have BM. Patient with loose liquid stool when standing up. Unable to get stool sample due to urgency. Stool noted to be liquid. Patient complaining of abdominal pain.
[2025-06-06 10:44] LABS: Anion Gap 16 (12-20); Blood Urea Nitrogen 40 mg/dL (9-16); Calcium 9.1 mg/dL (8.4-10.2); Carbon Dioxide 19 mmol/L (22-29); Chloride 102 mmol/L (96-108); Creatinine Clr Calc Pharmacy 58.2; Estimated Glomerular Filt Rate 43; Potassium 5.2 mmol/L (3.3-5.1); Sodium 132 mmol/L (135-145)
[2025-06-06 11:12] LABS: Ammonia 57 umol/L (13-55)
[2025-06-06 11:20] LABS: Salicylate < 5.0 mg/dL (15-30)
--- NOTE | 2025-06-06 11:23 | HO.NURTONUR ---
Patient is 64 year old female full code who presented to ED s/p fall one day prior to admission. Patient began having N/V/D with abdominal pain and came here. Patient received Head CT, Abd CT, and chest CT which all came back with no acute findings. Bood sugarsv have been elevated with highest of 439. Most recent 394. Her lactic went from 3.4 -> 4.0 -> 3.7. Patient recieved IV antibiotics and IVF. Vital signs remain stable and afebrile. Here she is drowsy but awakens to verbal stimulation. AOx4, tanzanian speaking primarily. Patient with abdominal pain and loose/liquid stools. Order for stool sample, unable to get due to stool urgency. Patient up 1 assist to commode. Ultrasound IV in left FA. Additional #20 in left AC.
[2025-06-06 11:26] LABS: Glucose, Whole Blood 395 mg/dL (60-115)
--- NOTE | 2025-06-06 11:42 | PC.NURSE ---
Filled out MRI form with patient and still runner. Patient stated not to use contrast d/t previous thyroid surgery. When asking patient what happened, all she stated was bad reaction . Info wrotten on MRI form and faxed to MRI.
[2025-06-06 11:58] LABS: Reflex Lactate? Lactic Acid Added
[2025-06-06 13:53] LABS: ~Lactic Acid-LAB USE ONLY 4.2 mmol/L (0.5-2.0)
[2025-06-06 14:19] LABS: ABG Refer to POC result
[2025-06-06 15:14] LABS: Reflex Lactate? 2 Y
[2025-06-06 15:57] LABS: ~Lactic Acid-LAB USE ONLY 2.9 mmol/L (0.5-2.0)
[2025-06-06 16:20] LABS: Glucose, Whole Blood 243 mg/dL (60-115)
--- NOTE | 2025-06-06 16:29 | PHA.MEDREC ---
Addendum entered by Suki Alcazar RPh 06/06/25 16:37: REVIEWED BY PHARMACIST Original Note: Pharmacy Consult ? Medication Reconciliation Pharmacy has completed the medication reconciliation. Confirmed medication list by comparing to pharmacy claims. Attempted to confirm medication list with patient with the help of a grass farmer. Patient was unable to remember any of her medications except for her insulins. Asked patient if her two primary contacts in her profile would know her medication list to which she said she does not have a good relationship with either contact . When asked if patient had her brought medication with her from [place], she said yes, but I do not know what medications . When patient was asked if she had a list of medications with her, she replied that she did not know . Patient's primary residence is in [place]; has been living in [place] for the past month. Left all medications that were recent in claims history as confirmed with last taken date unknown.
[2025-06-06 18:09] LABS: CDiff Gene PCR POSITIVE (Negative)
[2025-06-06] MEDS: Lactated Ringers 1,000 ML 150 ML IVCONT (18:21)
[2025-06-06 18:39] LABS: CDIFF Internal ctrl Dots and bkg OK (V); CDiff Toxin Negative (Negative)
[2025-06-06] MEDS: metroNIDAZOLE/NS 500 MG/100 ML PIGGYBACK 100 MG IV (20:12)
[2025-06-06 20:30] LABS: Glucose, Whole Blood 266 mg/dL (60-115)
[2025-06-06] MEDS: 0.9 % Sodium Chloride Flush 3 ML SYRINGE IVFLUSH (20:32)
[2025-06-06] MEDS: Insulin Glargine,Hum.rec.anlog 100 UNIT/ML 10 ML VIAL 25 UNIT SUBCUT (20:33)
--- NOTE | 2025-06-06 21:30 | PC.NURSE ---
appears to have urinated in commode although difficult to assess given that it is mixed with stool. x2 diarrhea so far this shift. bladder scan showing 170 mL post void residual volume
[2025-06-07] VITALS (9 sets, daily range): BP systolic 116–154; BP diastolic 56–78; PULSE 81–94; RESP 16–18; TEMP 36.3–36.9; O2SAT 86–100
[2025-06-07] MEDS: oxyCODONE HCl Immed Release 5 MG TABLET 2.5 MG PO (01:23)
[2025-06-07] MEDS: Lactated Ringers 1,000 ML 150 ML IVCONT ×3 (01:23→16:51)
[2025-06-07 07:14] LABS: Hematocrit 31.5 % (37.0-47.0); Hemoglobin 10.4 g/dl (12.0-16.0); Mean Corpuscular HGB Conc 33.0 g/dl (31.0-35.0); Mean Corpuscular Hemoglobin 30.1 pg (27.0-33.0); Mean Corpuscular Volume 91.0 fL (80.0-98.0); NRBC Abs Auto 0.000 X10*3/uL (0.0-0.012); NRBC Pct Auto 0.0 /100WBC (0.0-0.2); Platelet Count 257 X10*3/uL (160-400); Red Blood Count 3.46 X10*6/uL (4.20-5.50); White Blood Count 15.1 X10*3/uL (4.8-10.8)
[2025-06-07 07:29] LABS: Glucose, Whole Blood 291 mg/dL (60-115)
[2025-06-07 07:51] LABS: Blood Urea Nitrogen 40 mg/dL (9-16); Calcium 8.5 mg/dL (8.4-10.2); Creatinine Clr Calc Pharmacy 58.9; Estimated Glomerular Filt Rate 42; Magnesium 1.8 mg/dL (1.6-2.6)
[2025-06-07 07:59] LABS: Anion Gap 13 (12-20); Carbon Dioxide 21 mmol/L (22-29); Chloride 104 mmol/L (96-108); Potassium 4.0 mmol/L (3.3-5.1); Sodium 134 mmol/L (135-145); Thyroid Stimulating Hormone 32.18 uIU/mL (0.32-4.0)
--- NOTE | 2025-06-07 08:34 | P.PNIM_ITS ---
Subjective Subjective Date of Service: 06/07/25 Interval History: Patient seen and examined at bedside this morning, patient more alert today, mentioned that she persists with abdominal pain, has been having episodes of diarrhea, C diff tox positive yesterday, however a and B negative. At this time patient wishes to try to clear liquid diet. TSH also elevated. Review of Systems Review of Systems: Yes all other systems are reviewed and are negative Physical Exam 2 Exam: Exam: General: Alert and oriented x3, on supplemental oxygen Head: AT/NC ENT: Moist mucous membranes Neck: supple CVS; RRR, S1 S2 normal Lungs: Clear bilateral breath sounds, no wheezes or crackles Abd: Soft, tender to palpation Ext: No edema and no calf tenderness MSK: moving all 4 limbs Skin: No cyanosis or edema Psych: Cooperative with exam Vital Signs: Vital Signs: Last Vital Signs Temp 97.8 F 06/07/25 07:46 Pulse 94 06/07/25 07:46 Resp 18 06/07/25 07:46 BP 141/65 H 06/07/25 07:46 Pulse Ox 97 06/07/25 07:46 O2 Del Method Nasal Cannula 06/07/25 07:46 O2 Flow Rate 2 06/07/25 07:46 BMI result Body Mass Index 44.2 Objective Data Active Medications Acetaminophen (Acetaminophen 325 Mg Tablet) 650 mg PO Q6H PRN PRN Reason: Pain, Mild 1-3,fever,headache Last Admin: 06/06/25 20:33 Dose: 650 mg Documented By: JACK Amlodipine Besylate (Amlodipine Besylate 5 Mg Tablet) 5 mg PO DAILY [facility]; Protocol Calcium Carbonate (Calcium Carbonate 750 Mg Tab.Chew) 750 mg PO Q4H PRN PRN Reason: Heartburn Dextrose (Dextrose 50 % 25 Gm/50 Ml Syringe) 25 gm IVPUSH Q15M PRN; Protocol PRN Reason: per Hypoglycemia Standing Ord. Glucose (Glucose Gel 15 Gm Gel..Gram.) 15 gm PO Q15M PRN; Protocol PRN Reason: per Hypoglycemia Standing Ord. Heparin Sodium (Porcine) (Heparin Sodium,Porcine 5,000 Unit/Ml Vial) 5,000 unit SUBCUT Q12H [facility] Last Admin: 06/06/25 20:36 Dose: 5,000 unit Documented By: JACK Lactated Ringer's (Lr) 1,000 mls @ 150 mls/hr IVCONT .Q6H40M [facility] Last Admin: 06/07/25 06:29 Dose: Not Given Documented By: JACK Non-Admin Reason: IV Running Piperacillin Sod/Tazobactam (Sod 3.375 gm/ Sodium Chloride) 50 mls @ 100 mls/hr IV Q6H [facility] Last Infusion: 06/07/25 01:55 Dose: Infused Documented By: JACK Insulin Glargine (Insulin Glargine,Hum.Rec.Anlog 100 Unit/Ml 10 Ml Vial) 25 unit SUBCUT BEDTIME [facility] Last Admin: 06/06/25 20:33 Dose: 25 unit Documented By: JACK Insulin Human Lispro (Insulin Lispro 100 Unit/Ml 3 Ml Vial) 0 unit SUBCUT QIDACHS [facility]; Protocol Last Admin: 06/06/25 20:33 Dose: 1 unit Documented By: JACK Insulin Human Lispro (Insulin Lispro 100 Unit/Ml 3 Ml Vial) 10 unit SUBCUT TIDAC [facility] Levothyroxine Sodium (Levothyroxine Sodium 200 Mcg Tablet) 200 mcg PO DAILY@0600 [facility] Magnesium Hydroxide (Milk Of Magnesia 30 Ml Oral.Susp) 30 ml PO DAILY PRN PRN Reason: Constipation Melatonin (Melatonin 3 Mg Tablet) 6 mg PO BEDTIME PRN PRN Reason: Insomnia Montelukast Sodium (Montelukast Sodium 10 Mg Tablet) 10 mg PO DAILY [facility] Sodium Chloride (0.9 % Sodium Chloride Flush 3 Ml Syringe) 3 ml IVFLUSH QSHIFT [facility] Last Admin: 06/06/25 20:32 Dose: 3 ml Documented By: JACK Vancomycin HCl (Vancomycin Hcl 125 Mg Capsule) 125 mg PO Q6H [facility] Last Admin: 06/07/25 01:13 Dose: 125 mg Documented By: JACK Labs 06/07/25 07:06 06/07/25 07:06 Labs: Laboratory Results - last 24 hr 06/06/25 06/06/25 06/06/25 09:06 09:53 09:54 MCV MCH MCHC RDW Plt Count MPV Absolute Nucleated RBC Nucleated RBC % (auto) O2 Saturation 99.0 ABG pH at Pt Temp 7.32 L ABG pCO2 at Pt Temp 38 ABG pO2 at Pt Temp 116 H ABG HCO3 20 L ABG Base Excess (Actual) -5.1 Anion Gap 16 Estim Creat Clear Calc 58.2 Estimated GFR 43 POC Glucose 409 H* Random Glucose 443 H* Lactic Acid 3.7 H* Lactic Acid F/U @ 2Hr Lactic Acid F/U @ 4Hr Calcium 9.1 Magnesium Ammonia Beta-Hydroxybutyrate TSH Salicylates C. difficile Tox B Gene C. difficile Toxin A&B C. difficile Interpret 06/06/25 06/06/25 06/06/25 10:48 10:58 11:23 MCV MCH MCHC RDW Plt Count MPV Absolute Nucleated RBC Nucleated RBC % (auto) O2 Saturation ABG pH at Pt Temp ABG pCO2 at Pt Temp ABG pO2 at Pt Temp ABG HCO3 ABG Base Excess (Actual) Anion Gap Estim Creat Clear Calc Estimated GFR POC Glucose 395 H* Random Glucose Lactic Acid Lactic Acid F/U @ 2Hr Lactic Acid F/U @ 4Hr Calcium Magnesium Ammonia 57 H Beta-Hydroxybutyrate 0.13 TSH Salicylates < 5.0 L C. difficile Tox B Gene C. difficile Toxin A&B C. difficile Interpret 06/06/25 06/06/25 06/06/25 13:01 15:27 15:33 MCV MCH MCHC RDW Plt Count MPV Absolute Nucleated RBC Nucleated RBC % (auto) O2 Saturation ABG pH at Pt Temp ABG pCO2 at Pt Temp ABG pO2 at Pt Temp ABG HCO3 ABG Base Excess (Actual) Anion Gap Estim Creat Clear Calc Estimated GFR POC Glucose Random Glucose Lactic Acid Lactic Acid F/U @ 2Hr 4.2 H* Lactic Acid F/U @ 4Hr 2.9 H* Calcium Magnesium Ammonia Beta-Hydroxybutyrate TSH Salicylates C. difficile Tox B Gene POSITIVE A* C. difficile Toxin A&B Negative C. difficile Interpret SEE NOTE 06/06/25 06/06/25 06/07/25 16:16 20:25 07:06 MCV 91.0 MCH 30.1 MCHC 33.0 RDW 12.9 Plt Count 257 D MPV 10.3 Absolute Nucleated RBC 0.000 Nucleated RBC % (auto) 0.0 O2 Saturation ABG pH at Pt Temp ABG pCO2 at Pt Temp ABG pO2 at Pt Temp ABG HCO3 ABG Base Excess (Actual) Anion Gap 13 Estim Creat Clear Calc 58.9 Estimated GFR 42 POC Glucose 243 H 266 H Random Glucose 314 H Lactic Acid Lactic Acid F/U @ 2Hr Lactic Acid F/U @ 4Hr Calcium 8.5 D Magnesium 1.8 Ammonia Beta-Hydroxybutyrate TSH 32.18 H Salicylates C. difficile Tox B Gene C. difficile Toxin A&B C. difficile Interpret 06/07/25 07:20 MCV MCH MCHC RDW Plt Count MPV Absolute Nucleated RBC Nucleated RBC % (auto) O2 Saturation ABG pH at Pt Temp ABG pCO2 at Pt Temp ABG pO2 at Pt Temp ABG HCO3 ABG Base Excess (Actual) Anion Gap Estim Creat Clear Calc Estimated GFR POC Glucose 291 H Random Glucose Lactic Acid Lactic Acid F/U @ 2Hr Lactic Acid F/U @ 4Hr Calcium Magnesium Ammonia Beta-Hydroxybutyrate TSH Salicylates C. difficile Tox B Gene C. difficile Toxin A&B C. difficile Interpret Microbiology Microbiology Results: Microbiology 06/06/25 04:40 Blood Culture - Preliminary Blood - Venous No growth after 24 hours. 06/06/25 04:52 Blood Culture - Preliminary Blood - Venous No growth after 24 hours. Assessment and Plan (1) Sepsis: Status: Acute Plan Assessment: 64-year-old female who presented to the ED after vertigo with subsequent fall. Patient also complaining of emesis with vomiting. In the ED found to have lactic acidosis and leukocytosis, with CT scans showing colitis. Patient admitted for IV antibiotics. Toxic metabolic encephalopathy, improved Sepsis, likely secondary to gastroenteritis Anion gap metabolic acidosis likely secondary to Lactic acidosis, multifactorial dehydration, sepsis, improved Leukocytosis Acute hypoxic respiratory failure, likely multifactorial in setting of sepsis, acidosis -labs and imaging reviewed -continue with IV fluids LR at 125 mL/hour -we will continue IV Zosyn for sepsis -blood cultures ordered and pending, with the UA with negative nitrites and leukocyte esterase -GI panel negative, with C diff tox B gene positive however Tox A & B negative, patient likely carrier, however given diarrhea and IV ab, will continue PO vanc -Continue and titrate oxygen for SpO2 >90% T2DM, chronic -Continue basal insulin, scheduled inusilin 10 units and ISS. -A1c ordered and pending Hyponatremia, ruled out, decreased in setting of elevated glucose corrected sodium 142 MARIO -creatinine increased from 0.8->1.2. per KDIGO guidelines -Continue IV LR at 125ml/hr -Renally adjust medications Hypothyroidism -TSH 32.18 with free T4 0.49. -currently on levothyroxine 200mcg qd -Will require recheck in 4-6 weeks, if needed to consider increasing 200mcg. TSH will take some time to adjust. -cortisol level ordered as adrenal insufficiency may coexist with hypothyroidism FEN: LR, replete as needed, Clear liquid diet GI PPx: Protonix DVT PPx: SCDs/heparin Code Status: Full Code Disposition: Patient requires admission to the hospital for least 2 days in the setting of sepsis, lactic acidosis and gastroenteritis. Total time managing care of this patient today: 45 minutes. Quality Stroke Does the patient have a stroke diagnosis?: No VTE Prior VTE?: No VTE Risk Level:: Medical - moderate - high VTE Device Contraindication: N/A - Device Ordered VTE Drug Contraindication: N/A - Med Ordered
[2025-06-07 09:40] LABS: E. coli EAEC Not Detected (Not Detect.); E. coli EPEC Not Detected (Not Detect.); E. coli ETEC Not Detected (Not Detect.); E. coli STEC Not Detected (Not Detect.); Shigella sp./EIEC Not Detected (Not Detect.)
[2025-06-07 09:57] LABS: Free T4 (Free Thyroxine) 0.49 ng/dL (0.71-1.85)
[2025-06-07 11:16] LABS: Glucose, Whole Blood 296 mg/dL (60-115)
--- NOTE | 2025-06-07 12:59 | MHC.CM.PN ---
Pt. is staying with family, she lives in [place], PCP is: Vanesa Kennedy in [place]. Her DCP is to return to family's home, they will transport. Pt. speaks some Albanian, primary language is Singaporean, DCP: home, self care.
[2025-06-07] MEDS: Lactated Ringers 1,000 ML 999 ML IV (13:55)
[2025-06-07 16:18] LABS: Glucose, Whole Blood 241 mg/dL (60-115)
[2025-06-07] MEDS: oxyCODONE HCl Immed Release 5 MG TABLET PO ×2 (17:45→23:47)
--- NOTE | 2025-06-07 19:17 | PM.PNNEP ---
Subjective Subjective Date of Service: 06/08/25 Interval history: Patient seen and examined at bedside this morning, patient more alert today, mentioned that she persists with abdominal pain, has been having episodes of diarrhea, C diff tox positive yesterday, however a and B negative. At this time patient wishes to try to clear liquid diet. TSH also elevated. Physical Exam Vital Signs: Vital Signs: Last Vital Signs Temp 98.1 F 06/07/25 15:32 Pulse 87 06/07/25 15:32 Resp 16 06/07/25 15:32 BP 131/62 06/07/25 15:32 Pulse Ox 97 06/07/25 15:32 O2 Del Method Room Air 06/07/25 15:32 O2 Flow Rate 2 06/07/25 11:48 BMI result Body Mass Index 44.2 Objective Data Labs 06/08/25 06:28 06/08/25 06:28 Labs: Laboratory Results - last 24 hr 06/06/25 06/06/25 06/07/25 15:33 20:25 07:06 WBC 15.1 H RBC 3.46 L D Hgb 10.4 L D Hct 31.5 L D MCV 91.0 MCH 30.1 MCHC 33.0 RDW 12.9 Plt Count 257 D MPV 10.3 Absolute Nucleated RBC 0.000 Nucleated RBC % (auto) 0.0 Sodium 134 L Potassium 4.0 D Chloride 104 Carbon Dioxide 21 L Anion Gap 13 BUN 40 H Creatinine 1.27 Estim Creat Clear Calc 58.9 Estimated GFR 42 POC Glucose 266 H Random Glucose 314 H Estimat Average Glucose Hemoglobin A1c % Calcium 8.5 D Magnesium 1.8 TSH 32.18 H Free T4 Stl C. cayetanensis PCR Not Detected Stool Rotavirus A PCR Not Detected Stl Adenov F 40/41 PCR Not Detected Stool Astrovirus (PCR) Not Detected Stool Campylobacter PCR Not Detected Stool Cryptosporidium PCR Not Detected Stl Sh Tox Pr E STEC PCR Not Detected Stool E coli O157 PCR Not applicable Stl Enterotoxigenic E PCR Not Detected Stool EPEC (PCR) Not Detected Stool EAEC (PCR) Not Detected Stl E. histolytica PCR Not Detected Stool Giardia Lamblia PCR Not Detected Stl P. shigelloides PCR Not Detected Stool Salmonella PCR Not Detected Stool Sapovirus (PCR) Not Detected Stl Shigella/EIEC PCR Not Detected St Y.enterocolitica PCR Not Detected Stool Vibrio (PCR) Not Detected Stl Vibrio cholerae PCR Not Detected Stl Norovirus GI/GII PCR Not Detected 06/07/25 06/07/25 06/07/25 07:20 08:52 10:35 WBC RBC Hgb Hct MCV MCH MCHC RDW Plt Count MPV Absolute Nucleated RBC Nucleated RBC % (auto) Sodium Potassium Chloride Carbon Dioxide Anion Gap BUN Creatinine Estim Creat Clear Calc Estimated GFR POC Glucose 291 H Random Glucose Estimat Average Glucose 338 Hemoglobin A1c % 13.4 H Calcium Magnesium TSH Free T4 0.49 L Stl C. cayetanensis PCR Stool Rotavirus A PCR Stl Adenov F 40/41 PCR Stool Astrovirus (PCR) Stool Campylobacter PCR Stool Cryptosporidium PCR Stl Sh Tox Pr E STEC PCR Stool E coli O157 PCR Stl Enterotoxigenic E PCR Stool EPEC (PCR) Stool EAEC (PCR) Stl E. histolytica PCR Stool Giardia Lamblia PCR Stl P. shigelloides PCR Stool Salmonella PCR Stool Sapovirus (PCR) Stl Shigella/EIEC PCR St Y.enterocolitica PCR Stool Vibrio (PCR) Stl Vibrio cholerae PCR Stl Norovirus GI/GII PCR 06/07/25 06/07/25 11:13 16:15 WBC RBC Hgb Hct MCV MCH MCHC RDW Plt Count MPV Absolute Nucleated RBC Nucleated RBC % (auto) Sodium Potassium Chloride Carbon Dioxide Anion Gap BUN Creatinine Estim Creat Clear Calc Estimated GFR POC Glucose 296 H 241 H Random Glucose Estimat Average Glucose Hemoglobin A1c % Calcium Magnesium TSH Free T4 Stl C. cayetanensis PCR Stool Rotavirus A PCR Stl Adenov F 40/41 PCR Stool Astrovirus (PCR) Stool Campylobacter PCR Stool Cryptosporidium PCR Stl Sh Tox Pr E STEC PCR Stool E coli O157 PCR Stl Enterotoxigenic E PCR Stool EPEC (PCR) Stool EAEC (PCR) Stl E. histolytica PCR Stool Giardia Lamblia PCR Stl P. shigelloides PCR Stool Salmonella PCR Stool Sapovirus (PCR) Stl Shigella/EIEC PCR St Y.enterocolitica PCR Stool Vibrio (PCR) Stl Vibrio cholerae PCR Stl Norovirus GI/GII PCR Microbiology Microbiology Results: Microbiology 06/06/25 04:40 Blood - Venous Blood Culture - Preliminary No growth after 24 hours. 06/06/25 04:52 Blood - Venous Blood Culture - Preliminary No growth after 24 hours. Procedures Date of Service Date of Service: 06/08/25 Assessment & Plan Assessment and plan (1) Acute kidney injury: Status: Acute (2) Diarrhea: Status: Acute Plan Acute kidney injury: Secondary to volume depletion in the setting of multiple bowel movements. Patient had 6 bowel movements yesterday, 3 bowel movements today. Urinalysis showing 2+ protein, greater than 1000 glucose and no cells. We will quantify proteinuria once MARIO resolves, possibly has diabetic kidney disease we will need outpatient renal follow-up which we will arrange for one. Abdomen CT showed normal size kidneys, no obstruction Avoid nephrotoxic agents/ ACEi/contrast Continue IV fluids until diarrhea resolves, try to maintain a positive fluid balance Nephrology will sign off, please reconsult if clinical scenario changes. Time Spent With Patient Time: Total time managing care of this patient today ____ minutes. Progress Note: Quality Stroke Does the patient have a stroke diagnosis?: No
[2025-06-07 20:43] LABS: Glucose, Whole Blood 207 mg/dL (60-115)
[2025-06-07] MEDS: Insulin Glargine,Hum.rec.anlog 100 UNIT/ML 10 ML VIAL 25 UNIT SUBCUT (20:46)
[2025-06-07] MEDS: 0.9 % Sodium Chloride Flush 3 ML SYRINGE IVFLUSH (20:50)
[2025-06-08] VITALS (10 sets, daily range): BP systolic 120–135; BP diastolic 56–68; PULSE 74–88; RESP 16–20; TEMP 36.3–37.1; O2SAT 93–96
[2025-06-08] MEDS: Lactated Ringers 1,000 ML 150 ML IVCONT ×2 (01:52→08:18)
[2025-06-08 06:58] LABS: Hematocrit 28.7 % (37.0-47.0); Hemoglobin 9.4 g/dl (12.0-16.0); Mean Corpuscular HGB Conc 32.8 g/dl (31.0-35.0); Mean Corpuscular Hemoglobin 30.4 pg (27.0-33.0); Mean Corpuscular Volume 92.9 fL (80.0-98.0); NRBC Abs Auto 0.000 X10*3/uL (0.0-0.012); NRBC Pct Auto 0.0 /100WBC (0.0-0.2); Platelet Count 235 X10*3/uL (160-400); Red Blood Count 3.09 X10*6/uL (4.20-5.50); White Blood Count 14.9 X10*3/uL (4.8-10.8)
[2025-06-08 07:04] LABS: Anion Gap 10 (12-20); Blood Urea Nitrogen 26 mg/dL (9-16); Calcium 8.3 mg/dL (8.4-10.2); Carbon Dioxide 23 mmol/L (22-29); Chloride 107 mmol/L (96-108); Creatinine Clr Calc Pharmacy 70.0; Estimated Glomerular Filt Rate 52; Magnesium 1.7 mg/dL (1.6-2.6); Potassium 3.6 mmol/L (3.3-5.1); Sodium 136 mmol/L (135-145)
[2025-06-08 07:30] LABS: Glucose, Whole Blood 173 mg/dL (60-115)
[2025-06-08] MEDS: oxyCODONE HCl Immed Release 5 MG TABLET PO (08:17)
--- NOTE | 2025-06-08 11:32 | W.PM.IDCN ---
History of Present Illness Data of Consult Service Date: 06/07/25 Requesting physician: Maurilio Gaviria Primary Care Provider: None Physician HPI Reason for consult: abdominal pain She presents after vertigo started. She also has diarrhea and left flank and abdominal pain. Cdiff PCR is positive but toxin A and B negative. GI panel negative Blood cultures negative CT shows some colitis Review of Systems Review of Systems: Yes all other systems are reviewed and are negative PMFSH Family History Family history: reviewed and not pertinent Social History Social History Household Members: None Housing: Apartment Patient Tobacco Use Status: Never used Tobacco service: No Meds Allergies Allergy/AdvReac Type Severity Reaction Status Date / Time No Known Allergies (No Known Allergy Verified 06/05/25 18:50 Allergies*) Active Medications: Current Medications Acetaminophen (Acetaminophen 325 Mg Tablet) 650 mg PO Q6H PRN PRN Reason: Pain, Mild 1-3,fever,headache Last Admin: 06/07/25 12:05 Dose: 650 mg Amlodipine Besylate (Amlodipine Besylate 5 Mg Tablet) 5 mg PO DAILY [facility]; Protocol Last Admin: 06/08/25 08:17 Dose: 5 mg Calcium Carbonate (Calcium Carbonate 750 Mg Tab.Chew) 750 mg PO Q4H PRN PRN Reason: Heartburn Dextrose (Dextrose 50 % 25 Gm/50 Ml Syringe) 25 gm IVPUSH Q15M PRN; Protocol PRN Reason: per Hypoglycemia Standing Ord. Glucose (Glucose Gel 15 Gm Gel..Gram.) 15 gm PO Q15M PRN; Protocol PRN Reason: per Hypoglycemia Standing Ord. Heparin Sodium (Porcine) (Heparin Sodium,Porcine 5,000 Unit/Ml Vial) 5,000 unit SUBCUT Q12H [facility] Last Admin: 06/08/25 08:17 Dose: 5,000 unit Hydromorphone HCl (Hydromorphone Hcl 1 Mg/Ml Syringe) 1 mg IVPUSH Q4H PRN; Protocol PRN Reason: Pain, Severe (Pain Scale 7-10) Piperacillin Sod/Tazobactam (Sod 3.375 gm/ Sodium Chloride) 50 mls @ 100 mls/hr IV Q6H [facility] Last Infusion: 06/08/25 09:07 Dose: Infused Insulin Glargine (Insulin Glargine,Hum.Rec.Anlog 100 Unit/Ml 10 Ml Vial) 25 unit SUBCUT BEDTIME [facility] Last Admin: 06/07/25 20:46 Dose: 25 unit Insulin Human Lispro (Insulin Lispro 100 Unit/Ml 3 Ml Vial) 0 unit SUBCUT QIDACHS [facility]; Protocol Last Admin: 06/08/25 08:16 Dose: 2 unit Insulin Human Lispro (Insulin Lispro 100 Unit/Ml 3 Ml Vial) 10 unit SUBCUT TIDAC [facility] Last Admin: 06/08/25 08:17 Dose: Not Given Levothyroxine Sodium (Levothyroxine Sodium 200 Mcg Tablet) 200 mcg PO DAILY@0600 [facility] Last Admin: 06/08/25 05:45 Dose: 200 mcg Magnesium Hydroxide (Milk Of Magnesia 30 Ml Oral.Susp) 30 ml PO DAILY PRN PRN Reason: Constipation Melatonin (Melatonin 3 Mg Tablet) 6 mg PO BEDTIME PRN PRN Reason: Insomnia Montelukast Sodium (Montelukast Sodium 10 Mg Tablet) 10 mg PO DAILY [facility] Last Admin: 06/08/25 08:17 Dose: 10 mg Oxycodone HCl (Oxycodone Hcl Immed Release 5 Mg Tablet) 5 mg PO Q6H PRN PRN Reason: Pain, Moderate(Pain Scale 4-6) Last Admin: 06/08/25 08:17 Dose: 5 mg Sertraline HCl (Sertraline Hcl 50 Mg Tablet) 50 mg PO DAILY [facility] Last Admin: 06/08/25 09:15 Dose: 25 mg Sodium Chloride (0.9 % Sodium Chloride Flush 3 Ml Syringe) [facility] Last Admin: 06/08/25 09:06 Dose: Not Given Vancomycin HCl (Vancomycin Hcl 125 Mg Capsule) 125 mg PO Q6H [facility] Last Admin: 06/08/25 08:17 Dose: 125 mg Home Medications ?Medication ?Instructions ?Recorded ?Confirmed ?Last Taken ?Type amlodipine 5 mg tablet 5 mg PO DAILY 06/06/25 06/06/25 Unknown History atorvastatin 20 mg tablet 20 mg PO Q OTHER DAY 06/06/25 06/06/25 Unknown History gemfibrozil 600 mg tablet 600 mg PO Q48H 06/06/25 06/06/25 Unknown History glipizide 10 mg tablet 10 mg PO BID 06/06/25 06/06/25 Unknown History hydrochlorothiazide 25 mg tablet 25 mg PO DAILY 06/06/25 06/06/25 Unknown History insulin glargine 100 unit/mL 25 unit subcut DAILY 06/06/25 06/06/25 Unknown History subcutaneous solution (Lantus U-100 Insulin) insulin lispro 100 unit/mL 10 unit subcut TID 06/06/25 06/06/25 Unknown History subcutaneous solution (Humalog U-100 Insulin) levothyroxine 200 mcg tablet 200 mcg PO QAM 06/06/25 06/06/25 Unknown History lisinopril 20 mg tablet 20 mg PO DAILY 06/06/25 06/06/25 Unknown History montelukast 10 mg tablet 10 mg PO DAILY 06/06/25 06/06/25 Unknown History sertraline 50 mg tablet 50 mg PO DAILY 06/06/25 06/06/25 Unknown History Physical Exam Vital Signs: Vital Signs: Last Vital Signs Temp 97.4 F 06/08/25 07:20 Pulse 77 06/08/25 07:20 Resp 18 06/08/25 07:20 BP 122/57 L 06/08/25 07:20 Pulse Ox 96 06/08/25 07:20 O2 Del Method Room Air 06/08/25 07:20 O2 Flow Rate 1 06/07/25 20:00 BMI result Body Mass Index 44.2 Const: General: cooperative HEENT: Head: Yes normal to inspection Face and sinus: Yes normal facial exam Mouth: Normal oral and palatal mucosa present Teeth and gingiva: dentition normal Eyes: General: appearance normal, both eyes and all related structures Pupils: Equal, round and reactive pupils present Resp: Effort & Inspection: normal respiratory effort Cardio: Rate: regular rate Rhythm: regular rhythm GI: Other: mild abdominal discomfort Palpation (GI): Soft to palpation and nontender : General: Yes no CVA tenderness Back/Spine/Pelvis: Back: no CVA tenderness Skin: General skin exam: no rashes or lesions noted Neuro: General: moves all extremities Cranial nerves: Yes Equal, round and reactive pupils present Extrem: General: Yes normal to inspection Psych: Appearance: grossly normal Results Labs 06/08/25 06:28 06/08/25 06:28 Labs: Short CBC 06/08/25 Range/Units 06:28 WBC 14.9 H (4.8-10.8) X10*3/uL Hgb 9.4 L (12.0-16.0) g/dl Hct 28.7 L (37.0-47.0) % Plt Count 235 (160-400) X10*3/uL BMP 06/08/25 06:28 Sodium 136 Potassium 3.6 Chloride 107 Carbon Dioxide 23 BUN 26 H Creatinine 1.07 Calcium 8.3 L Microbiology Microbiology Results: Microbiology 06/06/25 04:52 Blood - Venous Blood Culture - Preliminary No growth after 48 hours. 06/06/25 04:40 Blood - Venous Blood Culture - Preliminary No growth after 48 hours. Assessment and Plan (1) Diarrhea: Status: Acute (2) Sepsis: Status: Acute Plan There is colonic inflammation with diarrhea. Stool testing is negative Cdiff PCR is positive Possible colonization with Cdiff and viral syndrome or Cdiff toxin below limit of detection Would treat for Cdiff with po Vancomycin 125 qid for 10 days Would not treat with antibiotics also since blood cultures negative and no focal diverticular inflammation particularly noted
[2025-06-08 12:14] LABS: Glucose, Whole Blood 269 mg/dL (60-115)
[2025-06-08] MEDS: oxyCODONE HCl Immed Release 5 MG TABLET 10 MG PO (12:41)
--- NOTE | 2025-06-08 14:29 | HO.PM.IMPN ---
Subjective Subjective Date of Service: 06/08/25 Interval History: Still with diffuse lower abdominal/ left flank pain Review of Systems Denies chest pain Denies shortness of breath Admits to nausea and diarrhea as well as abdominal pain. Denies fever chills Physical Exam Vital Signs: Vital Signs: Last Vital Signs Temp 97.5 F 06/08/25 12:00 Pulse 84 06/08/25 12:00 Resp 18 06/08/25 12:00 BP 122/56 L 06/08/25 12:00 Pulse Ox 94 06/08/25 12:00 O2 Del Method Room Air 06/08/25 12:00 O2 Flow Rate 1 06/07/25 20:00 BMI result Body Mass Index 44.2 Const: Other: Awake alert uncomfortable appearing Resp: Other: Clear to auscultation bilaterally no rales rhonchi or wheezes Cardio: Other: No S4; positive S1-S2; no S3 murmurs rubs or gallops GI: Other: Soft diffusely tender across lower abdomen hyperactive bowel sounds Extrem: Other: No edema bilaterally Objective Data Active Medications Acetaminophen (Acetaminophen 325 Mg Tablet) 650 mg PO Q6H PRN PRN Reason: Pain, Mild 1-3,fever,headache Last Admin: 06/07/25 12:05 Dose: 650 mg Documented By: NOHEMI Amlodipine Besylate (Amlodipine Besylate 5 Mg Tablet) 5 mg PO DAILY [facility] [place]; Protocol Last Admin: 06/08/25 08:17 Dose: 5 mg Documented By: RISA Calcium Carbonate (Calcium Carbonate 750 Mg Tab.Chew) 750 mg PO Q4H PRN PRN Reason: Heartburn Dextrose (Dextrose 50 % 25 Gm/50 Ml Syringe) 25 gm IVPUSH Q15M PRN; Protocol PRN Reason: per Hypoglycemia Standing Ord. Glucose (Glucose Gel 15 Gm Gel..Gram.) 15 gm PO Q15M PRN; Protocol PRN Reason: per Hypoglycemia Standing Ord. Heparin Sodium (Porcine) (Heparin Sodium,Porcine 5,000 Unit/Ml Vial) 5,000 unit SUBCUT Q12H [facility] [place] Last Admin: 06/08/25 08:17 Dose: 5,000 unit Documented By: RISA Hydromorphone HCl (Hydromorphone Hcl 1 Mg/Ml Syringe) 1 mg IVPUSH Q4H PRN; Protocol PRN Reason: Pain, Severe (Pain Scale 7-10) Last Admin: 06/08/25 11:52 Dose: 1 mg Documented By: RISA Insulin Glargine (Insulin Glargine,Hum.Rec.Anlog 100 Unit/Ml 10 Ml Vial) 25 unit SUBCUT BEDTIME [facility] [place] Last Admin: 06/07/25 20:46 Dose: 25 unit Documented By: TANK Insulin Human Lispro (Insulin Lispro 100 Unit/Ml 3 Ml Vial) 0 unit SUBCUT QIDACHS [facility] [place]; Protocol Last Admin: 06/08/25 12:20 Dose: 6 unit Documented By: RISA Insulin Human Lispro (Insulin Lispro 100 Unit/Ml 3 Ml Vial) 10 unit SUBCUT TIDAC [facility] [place] Last Admin: 06/08/25 12:20 Dose: 10 unit Documented By: RISA Levothyroxine Sodium (Levothyroxine Sodium 200 Mcg Tablet) 200 mcg PO DAILY@0600 [facility] [place] Last Admin: 06/08/25 05:45 Dose: 200 mcg Documented By: TANK Magnesium Hydroxide (Milk Of Magnesia 30 Ml Oral.Susp) 30 ml PO DAILY PRN PRN Reason: Constipation Melatonin (Melatonin 3 Mg Tablet) 6 mg PO BEDTIME PRN PRN Reason: Insomnia Montelukast Sodium (Montelukast Sodium 10 Mg Tablet) 10 mg PO DAILY [facility] [place] Last Admin: 06/08/25 08:17 Dose: 10 mg Documented By: RISA Oxycodone HCl (Oxycodone Hcl Immed Release 5 Mg Tablet) 10 mg PO Q4H PRN PRN Reason: Pain, Moderate(Pain Scale 4-6) Last Admin: 06/08/25 12:41 Dose: 10 mg Documented By: DELMY Sertraline HCl (Sertraline Hcl 50 Mg Tablet) 50 mg PO DAILY [facility] [place] Last Admin: 06/08/25 09:15 Dose: 25 mg Documented By: RISA Comments: per patient request Sodium Chloride (0.9 % Sodium Chloride Flush 3 Ml Syringe) 3 ml IVFLUSH QSHIFT [facility] [place] Last Admin: 06/08/25 09:06 Dose: Not Given Documented By: RISA Non-Admin Reason: IV Running Vancomycin HCl (Vancomycin Hcl 125 Mg Capsule) 125 mg PO Q6H [facility] [place] Last Admin: 06/08/25 12:41 Dose: 125 mg Documented By: DELMY Labs 06/08/25 06:28 06/08/25 06:28 Labs: Laboratory Results - last 24 hr 06/07/25 06/07/25 06/08/25 16:15 20:39 06:28 MCV 92.9 MCH 30.4 MCHC 32.8 RDW 12.7 Plt Count 235 MPV 10.4 Absolute Nucleated RBC 0.000 Nucleated RBC % (auto) 0.0 Anion Gap 10 L Estim Creat Clear Calc 70.0 Estimated GFR 52 POC Glucose 241 H 207 H Random Glucose 175 H Calcium 8.3 L Magnesium 1.7 06/08/25 06/08/25 07:24 12:10 MCV MCH MCHC RDW Plt Count MPV Absolute Nucleated RBC Nucleated RBC % (auto) Anion Gap Estim Creat Clear Calc Estimated GFR POC Glucose 173 H 269 H Random Glucose Calcium Magnesium Microbiology Microbiology Results: Microbiology 06/06/25 04:52 Blood Culture - Preliminary Blood - Venous No growth after 48 hours. 06/06/25 04:40 Blood Culture - Preliminary Blood - Venous No growth after 48 hours. Assessment and Plan (1) Sepsis: Status: Acute (2) Gastroenteritis: Status: Acute (3) Acute kidney injury: Status: Acute Plan Assessment: 64-year-old female who presented to the ED after vertigo with subsequent fall. Patient also complaining of emesis with vomiting. In the ED found to have lactic acidosis and leukocytosis, with CT scans showing colitis. Patient admitted for IV antibiotics. 1.Sepsis, likely secondary to gastroenteritis...resolved -C diff positive... Appreciate ID input -DC antibiotics in favor of vancomycin 125 p.o. q.i.d. times 10 days -blood cultures negative times 48 hours -pain management 2. Type 2 diabetes -acceptable control on current therapies -lispro correctional scale -continue basilar insulin -adjust as indicated 3.MARIO -responded to volume -follow renals/divalents 4.Hypothyroidism -TSH 32.18 with free T4 0.49. -currently on levothyroxine 200mcg qd -outpatient follow up when acute event is resolved heparin Full Code Quality Stroke Does the patient have a stroke diagnosis?: No VTE Prior VTE?: No VTE Risk Level:: Medical - moderate - high VTE Device Contraindication: N/A - Device Ordered VTE Drug Contraindication: N/A - Med Ordered
[2025-06-08 15:52] LABS: Glucose, Whole Blood 230 mg/dL (60-115)
[2025-06-08] MEDS: 0.9 % Sodium Chloride Flush 3 ML SYRINGE IVFLUSH (16:13)
--- NOTE | 2025-06-08 16:46 | P.CONNP_ITS ---
History of Present Illness Reason for Consult Consult date: 06/08/25 Chief Complaint Chief complaint: encephelopathy History of Present Illness Narrative: 64-year-old lady with PMH of type 2 diabetes mellitus on home insulin, hypertension, hypothyroidism presented to the ED after a fall secondary to multiple episodes of diarrhea. Patient has a baseline creatinine about 0.88, increased to 1.27 yesterday so nephrology is consulted for the management of MARIO. Continues to have multiple episodes of diarrhea CT abdomen and pelvis showing normal size kidney, no obstruction, thickening of transverse, descending and sigmoid colon. Review of Systems Review of Systems Const : no body aches, no chills, no excessive sweating and no fatigue Eyes: no blurry vision and no change in vision ENT: no bleeding gums and no change in voice, no dizziness Card: no chest pain, no shortness of breath, no orthopnea, no PND Resp: no cough, no excessive phlegm production, no SOB GI: no abdominal pain and no nausea, + vomiting, + diarrhea : no hematuria, no urinary frequency and no difficulty voiding Musc: no abnormal gait, no bone pain Neuro: no abnormal movements, no weakness, no dizziness, no abnormal gait and no behavioral changes Psych: no behavioral changes and no change in appetite Endo: no change in body appearance, no cold intolerance, no excessive sweating and no fatigue PMFSH Family History Family history: reviewed and not pertinent Social History Social History Household Members: None Housing: Apartment Patient Tobacco Use Status: Never used Tobacco service: No Meds Allergies Allergy/AdvReac Type Severity Reaction Status Date / Time No Known Allergies (No Known Allergy Verified 06/05/25 18:50 Allergies*) Active Medications: Current Medications Acetaminophen (Acetaminophen 325 Mg Tablet) 650 mg PO Q6H PRN PRN Reason: Pain, Mild 1-3,fever,headache Last Admin: 06/07/25 12:05 Dose: 650 mg Amlodipine Besylate (Amlodipine Besylate 5 Mg Tablet) 5 mg PO DAILY [facility]; Protocol Last Admin: 06/08/25 08:17 Dose: 5 mg Calcium Carbonate (Calcium Carbonate 750 Mg Tab.Chew) 750 mg PO Q4H PRN PRN Reason: Heartburn Dextrose (Dextrose 50 % 25 Gm/50 Ml Syringe) 25 gm IVPUSH Q15M PRN; Protocol PRN Reason: per Hypoglycemia Standing Ord. Glucose (Glucose Gel 15 Gm Gel..Gram.) 15 gm PO Q15M PRN; Protocol PRN Reason: per Hypoglycemia Standing Ord. Heparin Sodium (Porcine) (Heparin Sodium,Porcine 5,000 Unit/Ml Vial) 5,000 unit SUBCUT Q12H [facility] Last Admin: 06/08/25 08:17 Dose: 5,000 unit Hydromorphone HCl (Hydromorphone Hcl 1 Mg/Ml Syringe) 1 mg IVPUSH Q4H PRN; Protocol PRN Reason: Pain, Severe (Pain Scale 7-10) Last Admin: 06/08/25 16:23 Dose: 1 mg Insulin Glargine (Insulin Glargine,Hum.Rec.Anlog 100 Unit/Ml 10 Ml Vial) 25 unit SUBCUT BEDTIME [facility] Last Admin: 06/07/25 20:46 Dose: 25 unit Insulin Human Lispro (Insulin Lispro 100 Unit/Ml 3 Ml Vial) 0 unit SUBCUT QIDACHS [facility]; Protocol Last Admin: 06/08/25 16:35 Dose: 4 unit Insulin Human Lispro (Insulin Lispro 100 Unit/Ml 3 Ml Vial) 10 unit SUBCUT TIDAC [facility] Last Admin: 06/08/25 16:35 Dose: 10 unit Levothyroxine Sodium (Levothyroxine Sodium 200 Mcg Tablet) 200 mcg PO DAILY@0600 [facility] Last Admin: 06/08/25 05:45 Dose: 200 mcg Magnesium Hydroxide (Milk Of Magnesia 30 Ml Oral.Susp) 30 ml PO DAILY PRN PRN Reason: Constipation Melatonin (Melatonin 3 Mg Tablet) 6 mg PO BEDTIME PRN PRN Reason: Insomnia Montelukast Sodium (Montelukast Sodium 10 Mg Tablet) 10 mg PO DAILY [facility] Last Admin: 06/08/25 08:17 Dose: 10 mg Oxycodone HCl (Oxycodone Hcl Immed Release 5 Mg Tablet) 10 mg PO Q4H PRN PRN Reason: Pain, Moderate(Pain Scale 4-6) Last Admin: 06/08/25 12:41 Dose: 10 mg Sertraline HCl (Sertraline Hcl 50 Mg Tablet) 50 mg PO DAILY [facility] Last Admin: 06/08/25 09:15 Dose: 25 mg Sodium Chloride (0.9 % Sodium Chloride Flush 3 Ml Syringe) 3 ml IVFLUSH QSHIFT [facility] Last Admin: 06/08/25 16:13 Dose: 3 ml Vancomycin HCl (Vancomycin Hcl 125 Mg Capsule) 125 mg PO Q6H [facility] Last Admin: 06/08/25 12:41 Dose: 125 mg Home Medications ?Medication ?Instructions ?Recorded ?Confirmed ?Last Taken ?Type amlodipine 5 mg tablet 5 mg PO DAILY 06/06/2506/06 Unknown History atorvastatin 20 mg tablet 20 mg PO Q OTHER DAY 5 06/06/25 Unknown History gemfibrozil 600 mg tablet 600 mg PO Q48H 06/06/2505/18 Unknown History glipizide 10 mg tablet 10 mg PO BID 06/06/25 Unknown History hydrochlorothiazide 25 mg tablet 25 mg PO DAILY 06/06/25 Unknown History insulin glargine 100 unit/mL 25 unit subcut DAILY 05/1806/06/25 Unknown History subcutaneous solution (Lantus U-100 Insulin) insulin lispro 100 unit/mL 10 unit subcut TID 06/06/25 06/06/25 Unknown History subcutaneous solution (Humalog U-100 Insulin) levothyroxine 200 mcg tablet 200 mcg PO QAM 06/06/25 1 08/07/24 Unknown History lisinopril 20 mg tablet 20 mg PO DAILY 06/06/2505/18 Unknown History montelukast 10 mg tablet 10 mg PO DAILY 06/06/2505/18 Unknown History sertraline 50 mg tablet 50 mg PO DAILY 06/06/2505/18 Unknown History Physical Exam Vital Signs: Last Vital Signs Temp 97.6 F 06/08/25 15:46 Pulse 83 06/08/25 15:46 Resp 18 06/08/25 16:23 BP 135/68 06/08/25 15:46 Pulse Ox 93 06/08/25 15:46 O2 Del Method Room Air 06/08/25 15:46 O2 Flow Rate 1 06/07/25 20:00 BMI result Body Mass Index 44.2 General: not in any acute distress, ill appearing Nutritional Appearance: well nourished and overweight Eyes: appearance normal, both eyes and all related structures; Alignment and Position: alignment normal and position normal Neck: No lymphadenopathy, no thyromegaly Resp: bilateral air entry equal, no added sounds present Cardio: Regular rate, regular rhythm; Heart sounds: S1 normal heart sound present and S2 normal heart sound present GI: soft, nontender, no guarding, no hepatosplenomegaly : bladder normal to inspection, bladder normal to palpation, no renal angle tenderness Skin: no rashes or lesions noted and elasticity normal Neuro: alert, oriented x 3, moves all extremities Results Lab Results 06/08/25 06:28 06/08/25 06:28 Lab results: Chemistry 06/05/25 06/06/25 06/06/25 20:12 04:52 09:54 Sodium 133 L 134 L 132 L Potassium 4.9 4.8 5.2 H Carbon Dioxide 22 19 L 19 L BUN 33 H 38 H 40 H Creatinine 0.88 1.14 1.26 Calcium 10.4 H 9.5 D 9.1 06/07/25 06/08/25 07:06 06:28 Sodium 134 L 136 Potassium 4.0 D 3.6 Carbon Dioxide 21 L 23 BUN 40 H 26 H Creatinine 1.27 1.07 Calcium 8.5 D 8.3 L Hematology 06/05/25 06/07/25 06/08/25 20:12 07:06 06:28 WBC 15.7 H 15.1 H 14.9 H Hgb 14.1 10.4 L D 9.4 L Plt Count 345 257 D 235 Urinalysis 06/06/25 06:20 Urine Color Yellow Urine Appearance Cloudy Urine pH 5.0 Ur Specific [place] 1.020 Urine Protein 100 (2+) H Urine Glucose (UA) >=1000 H Urine Ketones Trace Urine Blood Negative Urine Nitrite Negative Ur Leukocyte Esterase Negative Urine RBC 0-2 Urine WBC 0-5 Ur Squamous Epith Cells 0-2 Hyaline Casts 3-5 Assessment and Plan (1) Diarrhea: Status: Acute (2) Acute kidney injury: Status: Acute Plan Acute kidney injury: Secondary to volume depletion in the setting of multiple bowel movements. Patient had 6 bowel movements yesterday, 3 bowel movements today. Urinalysis showing 2+ protein, greater than 1000 glucose and no cells. We will quantify proteinuria once MARIO resolves, possibly has diabetic kidney disease we will need outpatient renal follow-up which we will arrange for one. Abdomen CT showed normal size kidneys, no obstruction Creatinine decreased from a peak of 1.27 down to 1.07 this morning, however her baseline is around 0.88 Avoid nephrotoxic agents/ ACEi/contrast Continue IV fluids until diarrhea resolves, try to maintain a positive fluid balance. Anemia: Hemoglobin 9.3, possibly dilation unless she is getting some fluids But would like to rule out other etiologies, can get stool for occult blood as she has significant diarrhea Nephrology will sign off, please reconsult if clinical scenario changes. Procedures Date of Service Date of Service: 06/08/25
[2025-06-08 20:05] LABS: Glucose, Whole Blood 115 mg/dL (60-115)
[2025-06-09] VITALS (11 sets, daily range): BP systolic 125–153; BP diastolic 56–67; PULSE 83–92; RESP 16–18; TEMP 36.4–36.9; O2SAT 91–94
[2025-06-09] MEDS: oxyCODONE HCl Immed Release 5 MG TABLET 10 MG PO ×3 (01:23→23:14)
[2025-06-09 06:44] LABS: Hematocrit 31.2 % (37.0-47.0); Hemoglobin 9.9 g/dl (12.0-16.0); Mean Corpuscular HGB Conc 31.7 g/dl (31.0-35.0); Mean Corpuscular Hemoglobin 29.5 pg (27.0-33.0); Mean Corpuscular Volume 92.9 fL (80.0-98.0); NRBC Abs Auto 0.000 X10*3/uL (0.0-0.012); NRBC Pct Auto 0.0 /100WBC (0.0-0.2); Platelet Count 301 X10*3/uL (160-400); Red Blood Count 3.36 X10*6/uL (4.20-5.50); White Blood Count 17.7 X10*3/uL (4.8-10.8)
[2025-06-09 06:59] LABS: Alanine Aminotransferase 8 U/L (0-31); Albumin Level 3.0 g/dL (3.5-5.0); Alkaline Phosphatase 96 U/L (39-117); Anion Gap 10 (12-20); Aspartate Amino Transferase 19 U/L (5-31); Blood Urea Nitrogen 18 mg/dL (9-16); Calcium 8.5 mg/dL (8.4-10.2); Carbon Dioxide 23 mmol/L (22-29); Chloride 107 mmol/L (96-108); Creatinine Clr Calc Pharmacy 89.2; Estimated Glomerular Filt Rate > 60; Magnesium 1.9 mg/dL (1.6-2.6); Potassium 3.8 mmol/L (3.3-5.1); Sodium 136 mmol/L (135-145); Total Protein 6.1 g/dL (6.5-8.0)
[2025-06-09 07:21] LABS: Glucose, Whole Blood 179 mg/dL (60-115)
[2025-06-09 07:24] LABS: Atypical Lymph Absolute Manual 0.2 x10*3/uL; Atypical Lymphs Percent Manual 1 % (0-6); Band Neutrophils Percent 9 % (3-5); Eosinophils Absolute Manual 0.2 X10*3/uL (0.0-0.4); Eosinophils Percent Manual 1 % (0-4); Lymphocytes Absolute Manual 1.1 X10*3/uL (1.2-4.9); Lymphocytes Percent Manual 6 % (20-40); Monocytes Absolute Manual 0.9 X10*3/uL (0.1-1.2); Monocytes Percent Manual 5 % (2-11); Neutrophils Absolute Manual 15.4 X10*3/uL (2.0-8.3); Neutrophils Percent Manual 78 % (45-73)
[2025-06-09 07:25] LABS: RBC Morphology NOTED
[2025-06-09 07:27] LABS: Burr Cells 1+ (0-2) /OIF; Dohle Bodies PRESENT; Ovalocytes 1+ (5-14) /OIF; Polychromasia 2+ (3-5) /OIF; Toxic Granulation PRESENT; Toxic Vacuolation PRESENT
[2025-06-09] MEDS: 0.9 % Sodium Chloride Flush 3 ML SYRINGE IVFLUSH ×2 (09:07→20:05)
[2025-06-09 11:04] LABS: Glucose, Whole Blood 184 mg/dL (60-115)
--- NOTE | 2025-06-09 12:57 | PM.IDPN ---
Subjective Subjective Date of Service: 06/09/25 Critical Care Time (minutes): 15 Comment: She has LLQ pain remaining Diarrhea has resolved She had allergic reaction to iodine 30 years ago during thyroid testing and is afraid to get contrast CT abdomen and pelvis Objective Data Labs 06/09/25 06:22 06/09/25 06:22 Labs: Laboratory Results - last 24 hr 06/08/25 06/08/25 06/09/25 15:48 20:01 06:22 WBC 17.7 H RBC 3.36 L Hgb 9.9 L Hct 31.2 L MCV 92.9 MCH 29.5 MCHC 31.7 RDW 12.7 Plt Count 301 D MPV 9.9 Immature Gran % (Auto) Cancelled Neut % (Auto) Cancelled Lymph % (Auto) Cancelled [place] % (Auto) Cancelled Eos % (Auto) Cancelled Baso % (Auto) Cancelled Lymph # (Auto) Cancelled [place] # (Auto) Cancelled Eos # (Auto) Cancelled Baso # (Auto) Cancelled Abs Immat Gran (auto) Cancelled Absolute Neuts (auto) Cancelled Absolute Nucleated RBC 0.000 Nucleated RBC % (auto) 0.0 Neutrophils % (Manual) 78 H Band Neutrophils % 9 H Lymphocytes % (Manual) 6 L Atypical Lymphs % (Man) 1 Monocytes % (Manual) 5 Eosinophils % (Manual) 1 Abs Neuts (Manual) 15.4 H Lymphocytes # (Manual) 1.1 L Atyp Lymphs # (Manual) 0.2 Monocytes # (Manual) 0.9 Eosinophils # (Manual) 0.2 Toxic Granulation PRESENT Toxic Vacuolation PRESENT Dohle Bodies PRESENT Platelet Estimate NORMAL Plt Morphology Comment NORMAL RBC Morphology NOTED Polychromasia 2+ (3-5) Ovalocytes 1+ (5-14) [place] Cells 1+ (0-2) Sodium 136 Potassium 3.8 Chloride 107 Carbon Dioxide 23 Anion Gap 10 L BUN 18 H Creatinine 0.84 Estim Creat Clear Calc 89.2 Estimated GFR > 60 POC Glucose 230 H 115 Random Glucose 186 H Fasting Glucose 185 H Calcium 8.5 Magnesium 1.9 Total Bilirubin 0.2 AST 19 ALT 8 Alkaline Phosphatase 96 Total Protein 6.1 L Albumin 3.0 L 06/09/25 06/09/25 07:11 10:55 WBC RBC Hgb Hct MCV MCH MCHC RDW Plt Count MPV Immature Gran % (Auto) Neut % (Auto) Lymph % (Auto) [place] % (Auto) Eos % (Auto) Baso % (Auto) Lymph # (Auto) [place] # (Auto) Eos # (Auto) Baso # (Auto) Abs Immat Gran (auto) Absolute Neuts (auto) Absolute Nucleated RBC Nucleated RBC % (auto) Neutrophils % (Manual) Band Neutrophils % Lymphocytes % (Manual) Atypical Lymphs % (Man) Monocytes % (Manual) Eosinophils % (Manual) Abs Neuts (Manual) Lymphocytes # (Manual) Atyp Lymphs # (Manual) Monocytes # (Manual) Eosinophils # (Manual) Toxic Granulation Toxic Vacuolation Dohle Bodies Platelet Estimate Plt Morphology Comment RBC Morphology Polychromasia Ovalocytes [place] Cells Sodium Potassium Chloride Carbon Dioxide Anion Gap BUN Creatinine Estim Creat Clear Calc Estimated GFR POC Glucose 179 H 184 H Random Glucose Fasting Glucose Calcium Magnesium Total Bilirubin AST ALT Alkaline Phosphatase Total Protein Albumin Microbiology Microbiology Results: Microbiology 06/06/25 04:52 Blood - Venous Blood Culture - Preliminary No growth after 48 hours. 06/06/25 04:40 Blood - Venous Blood Culture - Preliminary No growth after 48 hours. Physical Exam Vital Signs: Vital Signs: Last Vital Signs Temp 97.5 F 06/09/25 10:56 Pulse 84 06/09/25 10:56 Resp 16 06/09/25 10:56 BP 133/63 06/09/25 10:56 Pulse Ox 93 06/09/25 10:56 O2 Del Method Room Air 06/09/25 10:56 O2 Flow Rate 1 06/07/25 20:00 BMI result Body Mass Index 44.2 GI: Other: LLQ pain on pressure Assessment and Plan Assessment and plan (1) Gastroenteritis: Problem details: She has worse leukocytosis to 17,000and pain today Diarrhea better Need to evaluate for abdominal abscess Status: Acute Assessment and Plan: CT abdomen and pelvis with contrast evaluate for abdominal abscess,contrast now not what patient was allergic to 30 years ago Continue vancomycin po Restart piperacillin/tazobactam if suspicious areas on CT particularly for divericulitis or abscess (2) Diarrhea: Status: Acute (3) Sepsis: Status: Acute Time Spent With Patient Time: Total time managing care of this patient today ____ minutes.
--- NOTE | 2025-06-09 13:05 | MHC.CM.PN ---
EMR REVIEWED, PT W/MARIO/CDIF/GASTROENTERITIS/PAIN, PER HOSPITALIST PT NOT YET READY FOR DC, PT REMAINS ON IV VANCO AND IV PAIN MEDS, CM WILL CONT TO FOLLOW DC NEEDS.
--- NOTE | 2025-06-09 13:52 | P.CDIM_ITS ---
PROVIDER RESPONSE TEXT: To clarify, the appropriate diagnosis supported by the clinical indicators: Obesity Due to excess calories QUERY TEXT: PHYSICIAN'S DOCUMENTATION REQUEST Date of Query: 06/09/2025 10:13 AM EST Patient Name: Angela Ward Admit Date: 06/06/2025 Dear Cesar Morales DO, A review of the medical record indicates additional documentation may be needed. Please review below and update the documentation accordingly. Clinical Indicators: Height: ( ) 5'5 Weight: ( ) 120.5 kg BMI: ( ) 44.2 Other Clinical Notes Supporting Significance of the BMI: on therapeutic diet If possible, please provide an associated diagnosis related to the abnormal BMI, such as: Overweight Obesity Due to excess calories Obesity Drug induced Obesity Due to other cause Specify the other cause Severe or Morbid Obesity With alveolar hypoventilation Severe or Morbid Obesity Without alveolar hypoventilation BMI is not significant Other (explain) Clinically unable to determine (explain) Thank you, Valeria Miranda RN Use of terms such as suspected, likely, concern for, or probable (associated with a specific diagnosis that is being evaluated, monitored, or treated as if it exists) are acceptable and can be coded in the inpatient setting, when documented at the time of discharge. Please use your independent medical judgment in providing your response. THIS QUERY IS PART OF THE PERMANENT MEDICAL RECORD
[2025-06-09 15:55] LABS: Glucose, Whole Blood 149 mg/dL (60-115)
--- NOTE | 2025-06-09 16:20 | P.PNIM_ITS ---
Subjective Subjective Date of Service: 06/09/25 Interval History: Notes improvement however still with left lower quadrant pain and left flank pain related to rib injury Review of Systems Denies chest pain Denies shortness of breath Admits to nausea and diarrhea as well as abdominal pain. Denies fever chills Physical Exam 2 Vital Signs: Vital Signs: Last Vital Signs Temp 97.5 F 06/09/25 15:44 Pulse 86 06/09/25 15:44 Resp 16 06/09/25 15:44 BP 137/65 06/09/25 15:44 Pulse Ox 94 06/09/25 15:44 O2 Del Method Room Air 06/09/25 15:44 O2 Flow Rate 1 06/07/25 20:00 BMI result Body Mass Index 44.2 Const: Other: Awake alert uncomfortable appearing Resp: Other: Clear to auscultation bilaterally no rales rhonchi or wheezes Cardio: Other: No S4; positive S1-S2; no S3 murmurs rubs or gallops GI: Other: Soft diffusely tender across lower abdomen hyperactive bowel sounds Extrem: Other: No edema bilaterally Objective Data Active Medications Acetaminophen (Acetaminophen 325 Mg Tablet) 650 mg PO Q6H PRN PRN Reason: Pain, Mild 1-3,fever,headache Last Admin: 06/07/25 12:05 Dose: 650 mg Documented By: NOHEMI Amlodipine Besylate (Amlodipine Besylate 5 Mg Tablet) 5 mg PO DAILY [facility]; Protocol Last Admin: 06/09/25 09:06 Dose: 5 mg Documented By: SANDRA Calcium Carbonate (Calcium Carbonate 750 Mg Tab.Chew) 750 mg PO Q4H PRN PRN Reason: Heartburn Dextrose (Dextrose 50 % 25 Gm/50 Ml Syringe) 25 gm IVPUSH Q15M PRN; Protocol PRN Reason: per Hypoglycemia Standing Ord. Glucose (Glucose Gel 15 Gm Gel..Gram.) 15 gm PO Q15M PRN; Protocol PRN Reason: per Hypoglycemia Standing Ord. Heparin Sodium (Porcine) (Heparin Sodium,Porcine 5,000 Unit/Ml Vial) 5,000 unit SUBCUT Q12H [facility] Last Admin: 06/09/25 09:06 Dose: 5,000 unit Documented By: SANDRA Hydromorphone HCl (Hydromorphone Hcl 1 Mg/Ml Syringe) 1 mg IVPUSH Q4H PRN; Protocol PRN Reason: Pain, Severe (Pain Scale 7-10) Last Admin: 06/09/25 13:37 Dose: 1 mg Documented By: SANDRA Insulin Glargine (Insulin Glargine,Hum.Rec.Anlog 100 Unit/Ml 10 Ml Vial) 25 unit SUBCUT BEDTIME [facility] Last Admin: 06/08/25 20:30 Dose: Not Given Documented By: JESICA Non-Admin Reason: POC 115 Comments: Dr. Domenico Oropeza notified of POC and hold Insulin Human Lispro (Insulin Lispro 100 Unit/Ml 3 Ml Vial) 0 unit SUBCUT QIDACHS [facility]; Protocol Last Admin: 06/09/25 12:36 Dose: 2 unit Documented By: SANDRA Insulin Human Lispro (Insulin Lispro 100 Unit/Ml 3 Ml Vial) 10 unit SUBCUT TIDAC [facility] Last Admin: 06/09/25 12:36 Dose: 10 unit Documented By: SANDRA Levothyroxine Sodium (Levothyroxine Sodium 200 Mcg Tablet) 200 mcg PO DAILY@0600 [facility] Last Admin: 06/09/25 06:00 Dose: 200 mcg Documented By: JESICA Magnesium Hydroxide (Milk Of Magnesia 30 Ml Oral.Susp) 30 ml PO DAILY PRN PRN Reason: Constipation Melatonin (Melatonin 3 Mg Tablet) 6 mg PO BEDTIME PRN PRN Reason: Insomnia Montelukast Sodium (Montelukast Sodium 10 Mg Tablet) 10 mg PO DAILY [facility] Last Admin: 06/09/25 09:07 Dose: 10 mg Documented By: SANDRA Oxycodone HCl (Oxycodone Hcl Immed Release 5 Mg Tablet) 10 mg PO Q4H PRN PRN Reason: Pain, Moderate(Pain Scale 4-6) Last Admin: 06/09/25 15:29 Dose: 10 mg Documented By: SANDRA Sertraline HCl (Sertraline Hcl 50 Mg Tablet) 50 mg PO DAILY [facility] Last Admin: 06/09/25 09:07 Dose: 50 mg Documented By: SANDRA Sodium Chloride (0.9 % Sodium Chloride Flush 3 Ml Syringe) 3 ml IVFLUSH QSHIFT [facility] Last Admin: 06/09/25 15:39 Dose: Not Given Documented By: SANDRA Non-Admin Reason: Unable to Scan Barcode Vancomycin HCl (Vancomycin Hcl 125 Mg Capsule) 125 mg PO Q6H [facility] Last Admin: 06/09/25 13:37 Dose: 125 mg Documented By: SANDRA Labs 06/09/25 06:22 06/09/25 06:22 Labs: Laboratory Results - last 24 hr 06/08/25 06/09/25 06/09/25 20:01 06:22 07:11 MCV 92.9 MCH 29.5 MCHC 31.7 RDW 12.7 Plt Count 301 D MPV 9.9 Immature Gran % (Auto) Cancelled Neut % (Auto) Cancelled Lymph % (Auto) Cancelled [place] % (Auto) Cancelled Eos % (Auto) Cancelled Baso % (Auto) Cancelled Lymph # (Auto) Cancelled [place] # (Auto) Cancelled Eos # (Auto) Cancelled Baso # (Auto) Cancelled Abs Immat Gran (auto) Cancelled Absolute Neuts (auto) Cancelled Absolute Nucleated RBC 0.000 Nucleated RBC % (auto) 0.0 Neutrophils % (Manual) 78 H Band Neutrophils % 9 H Lymphocytes % (Manual) 6 L Atypical Lymphs % (Man) 1 Monocytes % (Manual) 5 Eosinophils % (Manual) 1 Abs Neuts (Manual) 15.4 H Lymphocytes # (Manual) 1.1 L Atyp Lymphs # (Manual) 0.2 Monocytes # (Manual) 0.9 Eosinophils # (Manual) 0.2 Toxic Granulation PRESENT Toxic Vacuolation PRESENT Dohle Bodies PRESENT Platelet Estimate NORMAL Plt Morphology Comment NORMAL RBC Morphology NOTED Polychromasia 2+ (3-5) Ovalocytes 1+ (5-14) [place] Cells 1+ (0-2) Anion Gap 10 L Estim Creat Clear Calc 89.2 Estimated GFR > 60 POC Glucose 115 179 H Random Glucose 186 H Fasting Glucose 185 H Calcium 8.5 Magnesium 1.9 Total Bilirubin 0.2 AST 19 ALT 8 Alkaline Phosphatase 96 Total Protein 6.1 L Albumin 3.0 L 06/09/25 06/09/25 10:55 15:46 MCV MCH MCHC RDW Plt Count MPV Immature Gran % (Auto) Neut % (Auto) Lymph % (Auto) [place] % (Auto) Eos % (Auto) Baso % (Auto) Lymph # (Auto) [place] # (Auto) Eos # (Auto) Baso # (Auto) Abs Immat Gran (auto) Absolute Neuts (auto) Absolute Nucleated RBC Nucleated RBC % (auto) Neutrophils % (Manual) Band Neutrophils % Lymphocytes % (Manual) Atypical Lymphs % (Man) Monocytes % (Manual) Eosinophils % (Manual) Abs Neuts (Manual) Lymphocytes # (Manual) Atyp Lymphs # (Manual) Monocytes # (Manual) Eosinophils # (Manual) Toxic Granulation Toxic Vacuolation Dohle Bodies Platelet Estimate Plt Morphology Comment RBC Morphology Polychromasia Ovalocytes [place] Cells Anion Gap Estim Creat Clear Calc Estimated GFR POC Glucose 184 H 149 H Random Glucose Fasting Glucose Calcium Magnesium Total Bilirubin AST ALT Alkaline Phosphatase Total Protein Albumin Assessment and Plan (1) Gastroenteritis: Status: Acute (2) Acute kidney injury: Status: Acute Plan Assessment: 64-year-old female who presented to the ED after vertigo with subsequent fall. Patient also complaining of emesis with vomiting. In the ED found to have lactic acidosis and leukocytosis, with CT scans showing colitis. Patient admitted for IV antibiotics. 1.Sepsis, likely secondary to gastroenteritis...resolved -C diff positive... Appreciate ID input -DC antibiotics in favor of vancomycin 125 p.o. q.i.d. times 10 days -blood cultures negative times 48 hours -pain management -as per ID recommendations agree with checking CT scan with IV contrast to rule out any occult issues in abdomen 2. Type 2 diabetes -acceptable control on current therapies -lispro correctional scale -continue basilar insulin -adjust as indicated 3.MARIO -responded to volume -follow renals/divalents 4.Hypothyroidism -TSH 32.18 with free T4 0.49. -currently on levothyroxine 200mcg qd -outpatient follow up when acute event is resolved heparin Full Code Quality Stroke Does the patient have a stroke diagnosis?: No VTE Prior VTE?: No VTE Risk Level:: Medical - moderate - high VTE Device Contraindication: N/A - Device Ordered VTE Drug Contraindication: N/A - Med Ordered
[2025-06-09] MEDS: iohexoL 350 MG/ML 100 ML INFUS..BTL IV (17:36)
[2025-06-09 19:47] LABS: Glucose, Whole Blood 138 mg/dL (60-115)
[2025-06-10] VITALS (8 sets, daily range): BP systolic 134–160; BP diastolic 62–69; PULSE 79–85; RESP 14–20; TEMP 36.7–36.9; O2SAT 94–96
[2025-06-10 07:31] LABS: MANUAL DIFF FLAG NO
[2025-06-10 07:32] LABS: Hematocrit 29.2 % (37.0-47.0); Hemoglobin 9.3 g/dl (12.0-16.0); Imm Gran Abs Auto 0.47 X10*3/uL (0.00-0.03); Imm Gran Pct Auto 3.0 % (0.0-0.4); Lymphocytes Absolute Auto 1.5 X10*3/uL (1.2-4.9); Mean Corpuscular HGB Conc 31.8 g/dl (31.0-35.0); Mean Corpuscular Hemoglobin 29.6 pg (27.0-33.0); Mean Corpuscular Volume 93.0 fL (80.0-98.0); NRBC Abs Auto 0.020 X10*3/uL (0.0-0.012); NRBC Pct Auto 0.1 /100WBC (0.0-0.2); Platelet Count 291 X10*3/uL (160-400); Red Blood Count 3.14 X10*6/uL (4.20-5.50); White Blood Count 15.5 X10*3/uL (4.8-10.8)
[2025-06-10 07:49] LABS: Alanine Aminotransferase 13 U/L (0-31); Albumin Level 2.9 g/dL (3.5-5.0); Alkaline Phosphatase 134 U/L (39-117); Anion Gap 11 (12-20); Aspartate Amino Transferase 31 U/L (5-31); Blood Urea Nitrogen 11 mg/dL (9-16); Calcium 8.2 mg/dL (8.4-10.2); Carbon Dioxide 22 mmol/L (22-29); Chloride 106 mmol/L (96-108); Creatinine Clr Calc Pharmacy 99.8; Estimated Glomerular Filt Rate > 60; Potassium 4.0 mmol/L (3.3-5.1); Sodium 135 mmol/L (135-145); Total Protein 5.8 g/dL (6.5-8.0)
[2025-06-10 08:14] LABS: Glucose, Whole Blood 219 mg/dL (60-115)
[2025-06-10 11:55] LABS: Glucose, Whole Blood 210 mg/dL (60-115)
--- NOTE | 2025-06-10 14:06 | HO.PM.IMPN ---
Subjective Subjective Date of Service: 06/10/25 Interval History: Pain somewhat improved with therapies. Tolerating diet Review of Systems Denies chest pain Denies shortness of breath Admits to nausea and diarrhea as well as abdominal pain. Denies fever chills Physical Exam Vital Signs: Vital Signs: Last Vital Signs Temp 98.3 F 06/10/25 11:45 Pulse 80 06/10/25 11:45 Resp 20 06/10/25 11:45 BP 154/69 H 06/10/25 11:45 Pulse Ox 94 06/10/25 11:45 O2 Del Method Room Air 06/10/25 11:45 O2 Flow Rate 1 06/07/25 20:00 BMI result Body Mass Index 44.2 Const: Other: Awake alert uncomfortable appearing Resp: Other: Clear to auscultation bilaterally no rales rhonchi or wheezes Cardio: Other: No S4; positive S1-S2; no S3 murmurs rubs or gallops GI: Other: Soft diffusely tender across lower abdomen hyperactive bowel sounds Extrem: Other: No edema bilaterally Objective Data Active Medications Acetaminophen (Acetaminophen 325 Mg Tablet) 650 mg PO Q6H PRN PRN Reason: Pain, Mild 1-3,fever,headache Last Admin: 06/07/25 12:05 Dose: 650 mg Documented By: NOHEMI Amlodipine Besylate (Amlodipine Besylate 5 Mg Tablet) 5 mg PO DAILY [facility]; Protocol Last Admin: 06/10/25 08:22 Dose: 5 mg Documented By: REYNA Calcium Carbonate (Calcium Carbonate 750 Mg Tab.Chew) 750 mg PO Q4H PRN PRN Reason: Heartburn Dextrose (Dextrose 50 % 25 Gm/50 Ml Syringe) 25 gm IVPUSH Q15M PRN; Protocol PRN Reason: per Hypoglycemia Standing Ord. Glucose (Glucose Gel 15 Gm Gel..Gram.) 15 gm PO Q15M PRN; Protocol PRN Reason: per Hypoglycemia Standing Ord. Heparin Sodium (Porcine) (Heparin Sodium,Porcine 5,000 Unit/Ml Vial) 5,000 unit SUBCUT Q12H [facility] Last Admin: 06/10/25 08:23 Dose: 5,000 unit Documented By: REYNA Hydromorphone HCl (Hydromorphone Hcl 1 Mg/Ml Syringe) 1 mg IVPUSH Q4H PRN; Protocol PRN Reason: Pain, Severe (Pain Scale 7-10) Last Admin: 06/10/25 09:52 Dose: 1 mg Documented By: REYNA Piperacillin Sod/Tazobactam (Sod 3.375 gm/ Sodium Chloride) 50 mls @ 100 mls/hr IV Q6H [facility] Last Infusion: 06/10/25 10:25 Dose: Infused Documented By: REYNA Insulin Glargine (Insulin Glargine,Hum.Rec.Anlog 100 Unit/Ml 10 Ml Vial) 25 unit SUBCUT BEDTIME [facility] Last Admin: 06/09/25 20:00 Dose: Not Given Documented By: JESICA Non-Admin Reason: Physician Held Med Comments: Held per Dr. Domenico Oropeza for POC 138 Insulin Human Lispro (Insulin Lispro 100 Unit/Ml 3 Ml Vial) 0 unit SUBCUT QIDACHS [facility]; Protocol Last Admin: 06/10/25 11:57 Dose: 4 unit Documented By: REYNA Insulin Human Lispro (Insulin Lispro 100 Unit/Ml 3 Ml Vial) 10 unit SUBCUT TIDAC [facility] Last Admin: 06/10/25 11:57 Dose: 10 unit Documented By: REYNA Levothyroxine Sodium (Levothyroxine Sodium 200 Mcg Tablet) 200 mcg PO DAILY@0600 [facility] Last Admin: 06/10/25 05:50 Dose: 200 mcg Documented By: JESICA Magnesium Hydroxide (Milk Of Magnesia 30 Ml Oral.Susp) 30 ml PO DAILY PRN PRN Reason: Constipation Melatonin (Melatonin 3 Mg Tablet) 6 mg PO BEDTIME PRN PRN Reason: Insomnia Montelukast Sodium (Montelukast Sodium 10 Mg Tablet) 10 mg PO DAILY [facility] Last Admin: 06/10/25 08:23 Dose: 10 mg Documented By: REYNA Oxycodone HCl (Oxycodone Hcl Immed Release 5 Mg Tablet) 10 mg PO Q4H PRN PRN Reason: Pain, Moderate(Pain Scale 4-6) Last Admin: 06/09/25 23:14 Dose: 10 mg Documented By: JESICA Sertraline HCl (Sertraline Hcl 25 Mg Tablet) 25 mg PO BID [facility] Last Admin: 06/10/25 09:52 Dose: 25 mg Documented By: REYNA Sodium Chloride (0.9 % Sodium Chloride Flush 3 Ml Syringe) 3 ml IVFLUSH QSHIFT [facility] Last Admin: 06/10/25 08:27 Dose: Not Given Documented By: REYNA Non-Admin Reason: Previously Administered Vancomycin HCl (Vancomycin Hcl 125 Mg Capsule) 125 mg PO Q6H [facility] Last Admin: 06/10/25 08:22 Dose: 125 mg Documented By: REYNA Labs 06/10/25 06:58 06/10/25 06:58 Labs: Laboratory Results - last 24 hr 06/09/25 06/09/25 06/10/25 15:46 19:42 06:58 MCV 93.0 MCH 29.6 MCHC 31.8 RDW 12.8 Plt Count 291 MPV 9.9 Immature Gran % (Auto) 3.0 H Neut % (Auto) 75.1 H Lymph % (Auto) 9.8 L [place] % (Auto) 8.8 Eos % (Auto) 2.5 Baso % (Auto) 0.8 Lymph # (Auto) 1.5 [place] # (Auto) 1.4 H Eos # (Auto) 0.4 Baso # (Auto) 0.1 Abs Immat Gran (auto) 0.47 H Absolute Neuts (auto) 11.6 H Absolute Nucleated RBC 0.020 H Nucleated RBC % (auto) 0.1 Anion Gap 11 L Estim Creat Clear Calc 99.8 Estimated GFR > 60 POC Glucose 149 H 138 H Fasting Glucose 226 H Calcium 8.2 L Total Bilirubin 0.2 AST 31 ALT 13 Alkaline Phosphatase 134 H Total Protein 5.8 L Albumin 2.9 L 06/10/25 06/10/25 07:52 11:43 MCV MCH MCHC RDW Plt Count MPV Immature Gran % (Auto) Neut % (Auto) Lymph % (Auto) [place] % (Auto) Eos % (Auto) Baso % (Auto) Lymph # (Auto) [place] # (Auto) Eos # (Auto) Baso # (Auto) Abs Immat Gran (auto) Absolute Neuts (auto) Absolute Nucleated RBC Nucleated RBC % (auto) Anion Gap Estim Creat Clear Calc Estimated GFR POC Glucose 219 H 210 H Fasting Glucose Calcium Total Bilirubin AST ALT Alkaline Phosphatase Total Protein Albumin Assessment and Plan (1) Sigmoid diverticulitis: Status: Acute (2) Acute kidney injury: Status: Acute Plan Assessment: 64-year-old female who presented to the ED after vertigo with subsequent fall. Patient also complaining of emesis with vomiting. In the ED found to have lactic acidosis and leukocytosis, with CT scans showing colitis. Patient admitted for IV antibiotics. 1. Sigmoid diverticulitis -C diff positive... Appreciate ID input -Zosyn 3.65 mg IV q.6 (1) -blood cultures negative times 48 hours -tolerating diet at this time -pain management adequate. If continues in the backdrop of increasing her diet consider discharge in a.m. 2. Type 2 diabetes -acceptable control on current therapies -lispro correctional scale -continue basilar insulin -adjust as indicated 3.MARIO -responded to volume -follow renals/divalents 4.Hypothyroidism -TSH 32.18 with free T4 0.49. -currently on levothyroxine 200mcg qd -outpatient follow up when acute event is resolved heparin Full Code Quality Stroke Does the patient have a stroke diagnosis?: No VTE Prior VTE?: No VTE Risk Level:: Medical - moderate - high VTE Device Contraindication: N/A - Device Ordered VTE Drug Contraindication: N/A - Med Ordered
[2025-06-10 16:02] LABS: Glucose, Whole Blood 166 mg/dL (60-115)
[2025-06-10 20:58] LABS: Glucose, Whole Blood 277 mg/dL (60-115)
[2025-06-10] MEDS: Insulin Glargine,Hum.rec.anlog 100 UNIT/ML 10 ML VIAL 25 UNIT SUBCUT (22:05)
[2025-06-10] MEDS: 0.9 % Sodium Chloride Flush 3 ML SYRINGE IVFLUSH (22:06)
[2025-06-11] VITALS: BP 149/65; PULSE 77; RESP 20; TEMP 36.9; O2SAT 95
[2025-06-11 04:00] VITALS: BP 158/62; PULSE 79; RESP 20; TEMP 37; O2SAT 94
[2025-06-11 06:38] LABS: Hematocrit 30.6 % (37.0-47.0); Hemoglobin 9.7 g/dl (12.0-16.0); Mean Corpuscular HGB Conc 31.7 g/dl (31.0-35.0); Mean Corpuscular Hemoglobin 29.2 pg (27.0-33.0); Mean Corpuscular Volume 92.2 fL (80.0-98.0); NRBC Abs Auto 0.050 X10*3/uL (0.0-0.012); NRBC Pct Auto 0.4 /100WBC (0.0-0.2); Platelet Count 290 X10*3/uL (160-400); Red Blood Count 3.32 X10*6/uL (4.20-5.50); White Blood Count 12.7 X10*3/uL (4.8-10.8)
[2025-06-11 06:54] LABS: Alanine Aminotransferase 28 U/L (0-31); Albumin Level 2.9 g/dL (3.5-5.0); Alkaline Phosphatase 206 U/L (39-117); Anion Gap 11 (12-20); Aspartate Amino Transferase 61 U/L (5-31); Blood Urea Nitrogen 7 mg/dL (9-16); Calcium 8.8 mg/dL (8.4-10.2); Carbon Dioxide 24 mmol/L (22-29); Chloride 105 mmol/L (96-108); Creatinine Clr Calc Pharmacy 99.8; Estimated Glomerular Filt Rate > 60; Potassium 3.7 mmol/L (3.3-5.1); Sodium 136 mmol/L (135-145); Total Protein 5.9 g/dL (6.5-8.0)
[2025-06-11 07:16] LABS: Atypical Lymph Absolute Manual 0.1 x10*3/uL; Atypical Lymphs Percent Manual 1 % (0-6); Band Neutrophils Percent 0 % (3-5); Basophils Abs Manual 0.1 X10*3/uL (0.0-0.2); Basophils Percent Manual 1 % (0-2); Eosinophils Absolute Manual 0.9 X10*3/uL (0.0-0.4); Eosinophils Percent Manual 7 % (0-4); Lymphocytes Absolute Manual 3.3 X10*3/uL (1.2-4.9); Lymphocytes Percent Manual 26 % (20-40); Metamyelocytes Absolute 0.3 X10*3/uL; Metamyelocytes Percent 2 %; Monocytes Absolute Manual 1.0 X10*3/uL (0.1-1.2); Monocytes Percent Manual 8 % (2-11); Neutrophils Absolute Manual 7.0 X10*3/uL (2.0-8.3); Neutrophils Percent Manual 55 % (45-73)
[2025-06-11 07:19] LABS: Hypochromasia 1+ (5-14) /OIF; Polychromasia 1+ (0-2) /OIF; RBC Morphology NOTED
[2025-06-11 07:28] LABS: Glucose, Whole Blood 219 mg/dL (60-115)
[2025-06-11] MEDS: 0.9 % Sodium Chloride Flush 3 ML SYRINGE IVFLUSH (07:49)
[2025-06-11 07:54] VITALS: BP 141/95; PULSE 83; RESP 18; TEMP 36.4; O2SAT 97
[2025-06-11] MEDS: oxyCODONE HCl Immed Release 5 MG TABLET 10 MG PO ×3 (08:03→14:45)
[2025-06-11 11:17] VITALS: BP 170/71; PULSE 81; RESP 18; TEMP 36.5; O2SAT 97
--- NOTE | 2025-06-11 11:29 | PC.NURSE ---
Patient was transferred to Med-Surg ,report given earlier to JACKSON Contreras
[2025-06-11 11:38] LABS: Glucose, Whole Blood 249 mg/dL (60-115)
--- NOTE | 2025-06-11 13:20 | P.DS_ITS ---
DS: Providers Provider Date of admission: 06/06/25 06:51 Date of discharge: 06/07/25 Primary care physician: None Physician Consults: 06/06/25 11:04 Consult to Nephrology Routine Consulting Provider: [facility] Reason for consultation: MARIO, lactic acidosis Has provider been notified: No 06/06/25 18:36 Consult to Infectious Diseases Routine Consulting Provider: [facility] Reason for consultation: sepsis, cdif DS: Diagnosis Discharge Diagnosis (1) Sigmoid diverticulitis: Status: Acute (2) Acute kidney injury: Status: Acute DS: Summary Hospital Course Hospital Course: 64-year-old female with past medical history significant for T2 dm, who presented to the hospital after having vertigo and hitting her head. After fall, patient presented with left posterior inferior rib area, diffuse abdominal pain, emesis with bilious content. In the ED, labs with WBC 15.7, sodium 133, glucose 423, UA with glucosuria and trace ketones. head CT scattered periventricular deep white matter hypodensities, cervical spine with no acute findings, chest CT with no abnormalities, abdominal pelvic CT scan with inflammatory stranding and wall thickening of the transverse, descending and sigmoid colon suggestive of infectious or inflammatory colitis. Patient received multiple doses of IV insulin. Patient at this time somnolent, history was complimented through chart review, per nursing recently received IV pain medications. Hospital Course Patient admitted to telemetry where monitor failed to demonstrate any acute dysrhythmias. She had evidence of colitis on CT for which she received vanco and Zosyn. Over the course of the next several days she improved and her diet was advanced without problem. At this time she is tolerating full diet and minimal pain. She will discharge on Zosyn x1 week. She has history of chronic C diff for which she will complete her vancomycin taper as ordered Time Attestation Discharge Coordination Time (in mins): 35 Quality: Safe Use of Opioids Does Pt have an Active Cancer Diagnosis on the Problem List?: No Quality: Stroke Does the patient have a stroke diagnosis?: No Physical Exam Vital Signs: Vital Signs: Last Vital Signs Temp 97.7 F 06/11/25 11:17 Pulse 81 06/11/25 11:17 Resp 18 06/11/25 11:17 BP 170/71 H 06/11/25 11:17 Pulse Ox 97 06/11/25 11:17 O2 Del Method Room Air 06/11/25 11:17 O2 Flow Rate 1 06/07/25 20:00 BMI result Body Mass Index 44.2 Const: Other: Awake alert uncomfortable appearing Resp: Other: Clear to auscultation bilaterally no rales rhonchi or wheezes Cardio: Other: No S4; positive S1-S2; no S3 murmurs rubs or gallops GI: Other: Soft diffusely tender across lower abdomen hyperactive bowel sounds Extrem: Other: No edema bilaterally DS: Data Data Completed and Pending Labs on day of discharge: Laboratory Results - last 24 hr 06/10/25 06/10/25 06/11/25 15:59 20:54 06:03 WBC 12.7 H RBC 3.32 L Hgb 9.7 L Hct 30.6 L MCV 92.2 MCH 29.2 MCHC 31.7 RDW 12.4 Plt Count 290 MPV 9.8 Immature Gran % (Auto) Cancelled Neut % (Auto) Cancelled Lymph % (Auto) Cancelled [place] % (Auto) Cancelled Eos % (Auto) Cancelled Baso % (Auto) Cancelled Lymph # (Auto) Cancelled [place] # (Auto) Cancelled Eos # (Auto) Cancelled Baso # (Auto) Cancelled Abs Immat Gran (auto) Cancelled Absolute Neuts (auto) Cancelled Absolute Nucleated RBC 0.050 H Nucleated RBC % (auto) 0.4 H Neutrophils % (Manual) 55 Band Neutrophils % 0 L Lymphocytes % (Manual) 26 Atypical Lymphs % (Man) 1 Monocytes % (Manual) 8 Eosinophils % (Manual) 7 H Basophils % (Manual) 1 Metamyelocytes % 2 Abs Neuts (Manual) 7.0 Lymphocytes # (Manual) 3.3 Atyp Lymphs # (Manual) 0.1 Monocytes # (Manual) 1.0 Eosinophils # (Manual) 0.9 H Basophils # (Manual) 0.1 Metamyelocytes # 0.3 Nucleated RBCs 1 H Platelet Estimate NORMAL Plt Morphology Comment NORMAL RBC Morphology NOTED Polychromasia 1+ (0-2) Hypochromasia 1+ (5-14) Sodium 136 Potassium 3.7 Chloride 105 Carbon Dioxide 24 Anion Gap 11 L BUN 7 L Creatinine 0.75 Estim Creat Clear Calc 99.8 Estimated GFR > 60 POC Glucose 166 H 277 H Fasting Glucose 189 H Calcium 8.8 D Total Bilirubin 0.2 AST 61 H ALT 28 Alkaline Phosphatase 206 H Total Protein 5.9 L Albumin 2.9 L 06/11/25 06/11/25 07:09 11:33 WBC RBC Hgb Hct MCV MCH MCHC RDW Plt Count MPV Immature Gran % (Auto) Neut % (Auto) Lymph % (Auto) [place] % (Auto) Eos % (Auto) Baso % (Auto) Lymph # (Auto) [place] # (Auto) Eos # (Auto) Baso # (Auto) Abs Immat Gran (auto) Absolute Neuts (auto) Absolute Nucleated RBC Nucleated RBC % (auto) Neutrophils % (Manual) Band Neutrophils % Lymphocytes % (Manual) Atypical Lymphs % (Man) Monocytes % (Manual) Eosinophils % (Manual) Basophils % (Manual) Metamyelocytes % Abs Neuts (Manual) Lymphocytes # (Manual) Atyp Lymphs # (Manual) Monocytes # (Manual) Eosinophils # (Manual) Basophils # (Manual) Metamyelocytes # Nucleated RBCs Platelet Estimate Plt Morphology Comment RBC Morphology Polychromasia Hypochromasia Sodium Potassium Chloride Carbon Dioxide Anion Gap BUN Creatinine Estim Creat Clear Calc Estimated GFR POC Glucose 219 H 249 H Fasting Glucose Calcium Total Bilirubin AST ALT Alkaline Phosphatase Total Protein Albumin Discharge Plan Discharge Anticipated Discharge Date/Time: 06/11/25 13:02 Patient Disposition: Home, Self-Care Discharge Diagnosis: Colitis Referrals: [facility] [Physician, Medical] - 06/08/25 [facility] [Primary Care Provider, Medical] - 1 Week Discharge Medications: New vancomycin [Vancocin] 125 mg capsule See Rx Instructions .ROUTE .COMPLEX Qty: 21 0RF Rx Instructions: 125 mg orally; 1 tab p.o. b.i.d. x7 days then 1 tab daily x7 days amoxicillin-pot clavulanate 875-125 mg tablet 1 tab PO BID Qty: 14 0RF oxycodone 10 mg tablet 10 mg PO Q6H PRN (Reason: pain) Qty: 20 0RF Rx Instructions: Partial Fill upon patient request. Continued atorvastatin 20 mg tablet 20 mg PO Q OTHER DAY Rx Instructions: ALTERNATE WITH GEMFIBROZIL insulin glargine [Lantus U-100 Insulin] 100 unit/mL solution 25 unit subcut DAILY lisinopril 20 mg tablet 20 mg PO DAILY glipizide 10 mg tablet 10 mg PO BID amlodipine 5 mg tablet 5 mg PO DAILY gemfibrozil 600 mg tablet 600 mg PO Q48H Rx Instructions: ALTERNATE WITH ATORVASTATIN montelukast 10 mg tablet 10 mg PO DAILY levothyroxine 200 mcg tablet 200 mcg PO QAM hydrochlorothiazide 25 mg tablet 25 mg PO DAILY insulin lispro [Humalog U-100 Insulin] 100 unit/mL solution 10 unit subcut TID sertraline 50 mg tablet 50 mg PO DAILY Discharge Orders: Discharge Order (Routine); Ordered 06/11/25 Ordered By: Cesar Morales Diet: Advance to usual diet Activity on Discharge: As tolerated Stand Alone Forms: Patient Portal Discharge page Print Language: Upper Sor[place] Care Plan Goals: Complete course of Augmentin 875 twice a day to treat her colitis. Oxycodone 10 mg every 6 hours as needed for pain. Complete vancomycin taper as ordered; twice daily for 1 week then once daily for 1 week then stop Health Concerns: Follow up with the PCP when he returned to [place] Plan of Treatment: Continue all other medications as taken prior to hospitalization Assessment: See discharge summary Patient Instructions: Dehydration (DC), Head Injury (DC), Acute Nausea and Vomiting (ED), Acute Diarrhea (ED), Diabetic Hyperglycemia (ED)
--- NOTE | 2025-06-11 15:06 | MHC.CM.PN ---
pt dcd home self care
[2025-06-15 16:43] LABS: Cortisol, Free 1.21 mcg/dL
--- NOTE | 2025-06-16 16:07 | PM.SEPSBOL4 ---
Sepsis Bolus Exclusion Sepsis Bolus Exclusion CHF/Renal Failure Date of Occurrence: 06/06/25 Time of Occurrence:: 07:06 This patient met severe sepsis criteria due to the following condition(s):: Lactate>=4mmol/L In my clinical judgement the administration of 30 ml/kg of crystalloid would be detrimental to this patient due to the patient's following conditions:: Concern for fluid overload Replace the 30 mls/kg with (Zero amount not acceptable and all fluids for severe sepsis must be given at GREATER than 125 mls/hr) *Note: One of the marshall must be documented Crystalloids amount given in mls: (rate must be at least 150cc/hr): 1,000 Colloids amount given in mls:: 0 At a rate of (must be > 125 cchr):: 999
== END 2025-06-11 15:15 | disposition home or self-care (01) | DRG 871 ==
LOC: HO.ED 06-06 06:18 → HO.EDOVER 06-06 07:00 → HO.IMC 06-06 11:16 → HO.S3 06-11 08:31
PROVIDERS: Emergency Medicine Emergency Medical Services; Student in an Organized Health Care Education/Training Program; Admitting Provider Family Medicine; Emergency Provider Student in an Organized Health Care Education/Training Program; Visit Provider Hospitalist
DX: A41.9 Sepsis, unspecified organism (principal); G92.8 Other toxic encephalopathy; J96.01 Acute respiratory failure with hypoxia; A04.72 Enterocolitis due to Clostridium difficile, not specified as recurrent; N17.9 Acute kidney failure, unspecified; Z68.41 Body mass index [BMI] 40.0-44.9, adult; W19.XXXA Unspecified fall, initial encounter; E66.09 Other obesity due to excess calories; E03.9 Hypothyroidism, unspecified; E86.0 Dehydration; D64.9 Anemia, unspecified; Z79.890 Hormone replacement therapy; Z79.899 Other long term (current) drug therapy
CPT/HCPCS: 36415; 36600; 70450; 70551; 71250; 72125; 74176; 74177; 80048; 80053; 80076; 80179; 81001; 82010; 82140; 82530; 82550; 82803; 82947; 83036; 83605; 83690; 83735; 84439; 84443; 84484; 85007; 85025; 85027; 87040; 87324; 87493; 87507; 87637; 93005; 99285; J0696; J1171; J1644; J1836; J1885; J2270; J2405; J2543; J7120; Q9967

== ENCOUNTER → 2025-06-05 19:50 | Outpatient (BNV) | payer SELFPAY | PROVIDERS: Emergency Provider Emergency Medicine Emergency Medical Services; Visit Provider Student in an Organized Health Care Education/Training Program | DX: K63.89 Other specified diseases of intestine (principal); R42 Dizziness and giddiness; S09.90XA Unspecified injury of head, initial encounter; R11.10 Vomiting, unspecified; M54.2 Cervicalgia; Z04.3 Encounter for examination and observation following other accident | CPT/HCPCS: 70450; 71250; 72125; 74176 ==

== ENCOUNTER → 2025-06-05 19:51 | Outpatient (BNV) | payer SELFPAY | PROVIDERS: Admitting Provider Family Medicine; Emergency Provider Student in an Organized Health Care Education/Training Program; Visit Provider Internal Medicine Cardiovascular Disease | DX: R94.31 Abnormal electrocardiogram [ECG] [EKG] (principal); R42 Dizziness and giddiness | CPT/HCPCS: 93010 ==

== ENCOUNTER 2025-06-06 06:51 | Outpatient (BNV) | payer SELFPAY | END 2025-06-06 12:00 | PROVIDERS: Admitting Provider Family Medicine; Emergency Provider Student in an Organized Health Care Education/Training Program; Visit Provider Radiology Diagnostic Radiology | DX: G93.40 Encephalopathy, unspecified (principal) | CPT/HCPCS: 70551 ==

== ENCOUNTER 2025-06-06 06:51 | Outpatient (BNV) | payer SELFPAY | END 2025-06-09 16:22 | PROVIDERS: Admitting Provider Family Medicine; Emergency Provider Student in an Organized Health Care Education/Training Program; Visit Provider Radiology Diagnostic Radiology | DX: R10.9 Unspecified abdominal pain (principal) | CPT/HCPCS: 74177 ==

== ENCOUNTER → 2025-06-06 06:51 | Outpatient (BNV) | payer SELFPAY | PROVIDERS: Admitting Provider Family Medicine; Emergency Provider Student in an Organized Health Care Education/Training Program; Visit Provider Internal Medicine Critical Care Medicine | DX: R19.7 Diarrhea, unspecified (principal); N17.9 Acute kidney failure, unspecified | CPT/HCPCS: 99223 ==

== ENCOUNTER → 2025-06-06 06:51 | Outpatient (BNV) | payer SELFPAY | PROVIDERS: Admitting Provider Family Medicine; Emergency Provider Student in an Organized Health Care Education/Training Program; Visit Provider Student in an Organized Health Care Education/Training Program | DX: K52.9 Noninfective gastroenteritis and colitis, unspecified (principal); N17.9 Acute kidney failure, unspecified | CPT/HCPCS: 99223; 99233 ==

== ENCOUNTER → 2025-06-06 06:51 | Outpatient (BNV) | payer SELFPAY | PROVIDERS: Admitting Provider Family Medicine; Emergency Provider Student in an Organized Health Care Education/Training Program; Visit Provider Internal Medicine | DX: K52.9 Noninfective gastroenteritis and colitis, unspecified (principal); R19.7 Diarrhea, unspecified; A41.9 Sepsis, unspecified organism | CPT/HCPCS: 99222; 99232 ==